=== PATIENT | female | born 1995 | race Caucasian/White ===

== ENCOUNTER 2016-10-25 05:33 | Inpatient (IN) | payer BC ==
[2016-10-13 14:12] VITALS: BMI 27.0
[~2016-10-25] VITALS: Ht 154.9 cm; Wt 64.5 kg
[2016-10-25] VITALS (11 sets, daily range): BP systolic 98–141; BP diastolic 53–81; PULSE 60–88; TEMP 36.6–36.8; O2SAT 94–99; Ht 154.9 cm; Wt 64.5 kg
[~2016-10-25 05:33] MED LIST: ATEN50TA8 PO; LEVOIUD; MULT-506 PO; SULF800T23 PO
[2016-10-25] MEDS ORDERED: LACTATED RINGER'S 1000ML 1,000 ML IV SCH (06:00)
[2016-10-25] MEDS ORDERED: DEXAMETHASONE SOD INJ 4 MG/ML VIAL ONE (06:41)
[2016-10-25] MEDS ORDERED: MIDAZOLAM HCL 1 MG/ML 2ML VIAL ONE (06:41)
[2016-10-25] MEDS ORDERED: FENTANYL CITRATE INJ 50 MCG/1 ML 2 ML VIAL ONE (06:41)
[2016-10-25] MEDS ORDERED: LIDOCAINE HCL 2% 2 ML VIAL (20MG/ML) ONE (06:41)
[2016-10-25] MEDS ORDERED: PROPOFOL IV EMULSION 10 MG/ML 20 ML VIAL IV ONE ×2 (06:41→09:22)
[2016-10-25] MEDS ORDERED: ONDANSETRON INJ 2 MG/ML 2 ML VIAL ONE ×2 (06:41→08:59)
[2016-10-25] MEDS ORDERED: SUCCINYLCHOLINE CHLORIDE 20 MG/ML 10 ML VIAL IV ONE (06:41)
[2016-10-25] MEDS ORDERED: SCOPOLAMINE 1.5 MG TDSY TD ONE (06:57)
[2016-10-25] MEDS ORDERED: ONDANSETRON INJ 2 MG/ML 2 ML VIAL IV PRN (07:00)
[2016-10-25] MEDS ORDERED: EpHEDrine SULFATE INJ 50 MG/ML AMP IV PRN (07:00)
[2016-10-25] MEDS ORDERED: ATROPINE SULFATE 0.1 MG/ML 5ML SYR IV PRN (07:00)
[2016-10-25] MEDS ORDERED: CEFAZOLIN IV 2,000 MG/60 ML D5W IV ONE (07:14)
[2016-10-25] MEDS ORDERED: NURSING VERBAL MED ORDER ONE ×5 (07:15→21:30)
--- NOTE | 2016-10-25 07:27 | History and Physical ---
History & Physical Date Oct 25, 2016. Chief Complaint thyroid nodule History of Present Illness The patient is a 21 year old female who presents today for thyroidectomy for a 2x2 cm thyroid nodule at the junction of the isthmus and the right thyroid lobe on palpation. She had an FNA that showed borderline material to make a diagnosis of a benign lesion. She did not wish to have a repeat US and FNA and elected to go through with thyroidectomy. She has a history of palpitations but was cleared by cardiology and noted that they do not think her palpitations are of cardiac origin. She reported that she has no change in her health history. Past Medical/Surgical History Medical Problems: (1) Cystitis (2) UTI (urinary tract infection) Additional History Hepatic Disease: No Endocrine Disorder: No Kidney Disease: No Hypertension: No Bleeding Tendencies: No Infectious Diseases: No Other: Palpitations Allergies Coded Allergies: No Known Allergies (Verified , 10/25/16) Home Medications Scheduled Atenolol (Tenormin), 50 MG PO BID Multivitamin (Multivitamin), 1 TAB PO QAM Scheduled PRN Sulfa/Trimethoprim (Bactrim Ds 800MG/160MG), 1 TAB PO UD PRN for UTI Miscellaneous Medications Levonorgestrel (Iud) (Mirena), 1 DOSE Physical Examination Skin: warm/dry Neck: supple, no adenopathy, trachea midline, + pertinent finding (2x2 cm thyroid mass at the junction of the isthmus and the right thyroid lobe. ) Respiratory/Chest: lungs clear, normal breath sounds, no respiratory distress Cardiovascular: regular rate, rhythm, no edema, no murmur Diagnosis thyroid nodule ASA Classification: ASA Class I Plan of Treatment Patient was consented for thyroidectomy with intraoperative nerve monitoring today 10/25/16. Informed consent was obtained after a thorough explanation fo the procedure, benefits, and risks of the procedure. There was an opportunity for questions and answers. Nursing counseling was provided. IT IS IMPORTANT TO NOTE THAT SHE WAS CONSENTED FOR TOTAL THYROIDECTOMY. HOWEVER , I MADE IT VERY CLEAR THAT I WOULD START BY REMOVING THE NODULE LOCATED AT THE JUNCTION OF THE RIGHT THYROID LOBE AND ISTHMUS. IF FROZEN SECTON ANALYSIS IS ANY WAY SURGGESTIVE OF A MALIGNANT LESION, THEN I WILL PROCEED WITH TOTAL THRYOIDECTOMY. OTHERWISE, THE PROCEDURE WILL BE TERMINATED WITH REMOVAL OF ONLY THIS NODULE. THE PATIENT INDICATED ACCEPTANCE OF THE PLAN AND SIGNED HER CONSENT FORM.
[2016-10-25] MEDS ORDERED: HYDROmorphone INJ 2 MG/ML SYR/VIAL ONE (07:44)
[2016-10-25] MEDS ORDERED: LIDOCAINE/EPINEPHRINE 1% 20 ML VIAL INJ ONE (08:18)
[2016-10-25] MEDS ORDERED: EpHEDrine SULFATE 50MG/5ML SYR ONE (09:02)
[2016-10-25] MEDS ORDERED: TISSEEL FIBRIN SEALANT 4ML TOP ONE (09:07)
[2016-10-25] MEDS ORDERED: BACITRACIN OINT 15 GM TUBE TOP ONE (09:07)
[2016-10-25] MEDS ORDERED: SURGICEL ABSORB HEMOSTAT 2IN X 14IN TOP ONE (09:07)
[2016-10-25] MEDS ORDERED: SODIUM CHLORIDE 0.9% 1000ML 1,000 ML IV SCH (09:41)
[2016-10-25] MEDS ORDERED: CALCIUM CARBONATE 500 MG CHEWABLE PO PRN (09:45)
[2016-10-25] MEDS ORDERED: NALOXONE HCL 0.4 MG/1 ML VIAL/CARP IV PRN (09:45)
[2016-10-25] MEDS ORDERED: MoRPHine SULFATE 1 MG/ML 50 ML PCA CASS IV PRN (09:45)
[2016-10-25] MEDS: FENTANYL CITRATE INJ 50 MCG/1 ML 2 ML VIAL IV PRN ×4 (09:52→10:07)
[2016-10-25] MEDS ORDERED: MoRPHine SULFATE 1 MG/ML 50 ML PCA CASS ONE (10:01)
[2016-10-25] MEDS: HYDROmorphone INJ 1 MG/ML SYR IV PRN ×2 (10:12→10:17)
--- NOTE | 2016-10-25 10:36 | Anesthesiology Progress Note ---
Anesthesia Post Op Note Date & Time Oct 25, 2016 at 10:36 Vital Signs Pain Intensity: 3 Vital Signs Past 12 Hours Date Time Temp Pulse Resp B/P Pulse Ox O2 Delivery O2 Flow Rate FiO2 10/25/16 10:16 36.4 10/25/16 10:13 124/66 10/25/16 10:10 102 15 10/25/16 10:10 108 15 98 10/25/16 10:08 121/55 10/25/16 10:05 108 15 10/25/16 10:05 107 15 99 10/25/16 10:03 124/70 10/25/16 10:00 100 13 10/25/16 10:00 100 13 99 10/25/16 09:58 124/60 10/25/16 09:55 99 10 98 10/25/16 09:55 100 10 10/25/16 09:53 122/62 10/25/16 09:50 114 15 10/25/16 09:50 115 15 99 10/25/16 09:48 119/56 10/25/16 09:45 114 22 10/25/16 09:45 115 22 99 10/25/16 09:43 120/53 10/25/16 09:40 36.4 110 16 120/53 98 Mask 10 10/25/16 05:50 36.8 88 18 141/81 99 Room Air Notes Mental Status: alert / awake / arousable, participated in evaluation Pt Amnestic to Procedure: Yes Nausea / Vomiting: adequately controlled Pain: adequately controlled Airway Patency, RR, SpO2: stable & adequate BP & HR: stable & adequate Hydration State: stable & adequate Anesthetic Complications: no major complications apparent
--- NOTE | 2016-10-25 11:14 | [facility] Post Operative Brief Note ---
Immediate Operative Summary Operative Date Oct 25, 2016. Pre-Operative Diagnosis Thyroid Mass Post-Operative Diagnosis Same as preoprerative diagnosis Procedure(s) Performed Total Thyroidectomy Surgeon Dr Roverto De Los Santos Drums Teacher Surgeon(s) Kelsie Hitchcock PA-C Estimated Blood Loss 25 Findings 3 x 3 cm right thyroid lobe mass abutting isthmus and located in the lower pole. Specimens Total thyroidectomy: Long suture Left superior aspect, Short suture Right inferior aspect Complication(s) None Disposition Recovery Room / PACU
--- NOTE | 2016-10-25 11:22 | OPERATIVE REPORT ---
DATE OF OPERATION: 10/25/2016 SURGEON: Dr. De Los Santos. WATCH AND CLOCK MAKER AND REPAIRER: Kelsie Hitchcock PA-C. ANESTHESIA: General via endotracheal tube. PROCEDURE: Total thyroidectomy with intraoperative monitoring of recurrent laryngeal nerves bilaterally. PREOPERATIVE DIAGNOSIS: Right thyroid lobe mass. POSTOPERATIVE DIAGNOSIS: Right thyroid lobe mass. SUMMARY OF FINDINGS: 1. A 3 x 3 cm right thyroid lobe mass that felt somewhat cystic in nature at certain parts and then other aspects felt solid. 2. No lymph nodes in the paratracheal area or in the anterior central neck compartment. 3. Recurrent laryngeal nerves easily identified early in the dissection and after visual inspection, stimulated at 0.5 milliamps. After all dissection and hemostasis achieved, the nerves were once again stimulated at 0.5 milliamps with a vigorous response. INDICATIONS FOR THE PROCEDURE: This is a 21-year-old woman who had a right thyroid mass and a nondiagnostic fine needle aspiration when she saw me back in May of 2016. I recommended for serial ultrasounds with fine needle aspiration if there was an increase in size. She was very adamant that she did not want to have another fine needle aspiration, she just wanted this mass out. When I explained the difference between a lobectomy and a total thyroidectomy, she strongly preferred total thyroidectomy. Full informed consent including the indications, risks, benefits, and alternatives was provided in a relaxed office setting. There was an opportunity for questions and answers. BLOOD LOSS: 25 mL. FLUIDS: 1 liter crystalloid. SPECIMENS SENT: Total thyroid gland. There was a long suture in the superior aspect of the left thyroid lobe and a short suture in the inferior aspect of the right thyroid lobe. Sponge and needle count was correct at the end of the case. COMPLICATIONS: None. DESCRIPTION OF THE PROCEDURE: Prior to the surgery, the patient had the planned incision drawn when she was sitting upright at the bedside. There was no relaxed skin tension line anywhere near the incision, given her young age. Therefore, I made a curvilinear line just about 1.5 cm superior to the sternal notch. Following an uneventful intubation and confirmation that there was good impedance for the nerve monitoring, I injected in the previously drawn incision line with 20 mL 1% lidocaine, 1:100,000 parts epinephrine. She was then prepped and draped in a standard fashion and a shoulder roll was placed. Following sterile prep and drape, #10 blade was used to make an incision down through skin, subcutaneous tissue and platysma. Superiorly and inferiorly based platysmal flaps were elevated using Bovie electrocautery. Strap muscles were divided in the midline and held laterally throughout the case using a Green retractor. The superior thyroid blood supply was ligated and clamped using mini and medium Hemoclips. Also, the ligature device was used throughout the case to help dissect and also to seal and divide vessels. Only the right superior parathyroid gland was identified during the case. A subcapsular dissection was used to avoid removing any parathyroid glands inadvertently. After controlling the blood supply superiorly, the technique then involved finding the recurrent laryngeal nerve in the tracheoesophageal groove bilaterally. Then dissection was carried from inferior to superior using the ligature device while keeping an eye on the nerve at all times and avoiding excessive retraction. The nerves were protected at all times. Anteriorly, the thyroid gland was removed from the tracheal wall using electrocautery and bipolar electrocautery and also a #15 blade. A near total thyroidectomy was performed with just a small cuff of thyroid tissue remaining, primarily on the left side. There was essentially no bleeding and therefore no Surgicel was placed in the tracheoesophageal groove. Alma drains were doubled one on another and placed in the tracheoesophageal groove. The strap muscles were closed in the midline using a running 3-0 Vicryl suture. Tisseel was used to spray deep to the platysma and then the platysma was closed with a running 4-0 chromic suture. The platysma was held down against the Tisseel. The 2 Alma drains were brought out one on top of another in the midline. The dermis was closed with inverted and buried 4-0 chromic suture. Skin was closed with chuck. The drain site had stay sutures placed using two 5-0 nylon sutures. At this point, the Bovie had already been turned off. The wound was cleaned with hydrogen peroxide, followed by alcohol. After this, it was dried. Bacitracin was placed on the wound, followed by Telfa and Tegaderm. The patient was allowed to wake up on her own and was transferred to recovery in no apparent distress. I attest to the content of the Intraoperative Record and any orders documented therein. Any exceptions are noted below. RAFAELA
[2016-10-25] MEDS ORDERED: DiphenhydrAMINE HCL 50 MG/ML VIAL IV SCH (15:15)
[2016-10-25] MEDS: CEFAZOLIN IV 2,000 MG in DEXTROSE 5% 50ML 50 ML IV SCH (15:49)
[2016-10-25] MEDS: ONDANSETRON INJ 2 MG/ML 2 ML VIAL IV PRN (18:36)
[2016-10-25] MEDS ORDERED: DC PCA ONE (20:00)
[2016-10-25] MEDS: CALCIUM CARBONATE 500 MG CHEWABLE PO SCH ×3 (21:08→22:28)
[2016-10-25] MEDS ORDERED: BACITRACIN OINT 15 GM TUBE EXT PRN (22:00)
[2016-10-25] MEDS: HYDROCODONE/ACETAMINOPHEN 7.5/325MG TAB PO PRN (22:29)
[2016-10-26] MEDS: CEFAZOLIN IV 2,000 MG in DEXTROSE 5% 50ML 50 ML IV SCH ×2 (00:10→07:53)
[2016-10-26] MEDS ORDERED: NURSING VERBAL MED ORDER ONE ×2 (00:45→01:00)
[2016-10-26] MEDS ORDERED: ACETAMINOPHEN 325 MG TAB PO STA (00:49)
[2016-10-26] MEDS: ONDANSETRON INJ 2 MG/ML 2 ML VIAL IV PRN (00:54)
[2016-10-26] MEDS ORDERED: DEXAMETHASONE INJ 10 MG in SYRINGE 0 ML IV STA (00:55)
[2016-10-26] MEDS ORDERED: LORAZEPAM INJ 1 MG in SYRINGE 0.5 ML IV PRN (01:00)
[2016-10-26 03:28] VITALS: BP 101/57; PULSE 75; TEMP 36.7; O2SAT 96
[2016-10-26] MEDS: HYDROCODONE/ACETAMINOPHEN 7.5/325MG TAB PO PRN ×2 (03:35→07:58)
[2016-10-26 07:19] VITALS: BP 103/58; PULSE 57; TEMP 36.7; O2SAT 96
--- NOTE | 2016-10-26 09:37 | Discharge Instructions ---
Discharge Instructions Admission Reason for Admission: Thyroid Mass Discharge Discharge Diagnosis / Problem: Thyroid Mass Discharge Goals Goal(s): Improve disease control, Therapeutic intervention Activity Recommendations Activity Limitations: as noted below Lifting Limitations: no more than 5 pounds Exercise/Sports Limitations: until after follow-up appointment Shower/Bathe: keep incision dry Driving or Machine Use: Do not drive while taking narcotic pain medication. . Instructions / Follow-Up Instructions / Follow-Up Follow up with Dr. Roverto De Los Santos on 10/27/16. Current Hospital Diet Patient's current hospital diet: Regular Diet Discharge Diet Recommended Diet: Regular Diet Procedures Procedures Performed: Total Thyroidectomy Pending Studies Studies pending at discharge: no Laboratory Results Last 24 Hours Test 10/26/16 06:00 Calcium Level 8.3 mg/dl Medical Emergencies . Who to Call and When: Medical Emergencies: If at any time you feel your situation is an emergency, please call 911 immediately. . Non-Emergent Contact Non-Emergency issues call your: Primary Care Provider Call Non-Emergent contact if: you have a fever, your pain is worsening, wound has increased drainage, wound has increased redness, wound has increased pain . . "Provider Documentation" section prepared by Kelsie Hitchcock. VTE Core Measure Inpt VTE Proph given/why not?: Treatment not indicated
[2016-10-26] MEDS ORDERED: ONDANSETRON HOME PACK 4MG OD TAB PO PRN (10:00)
[2016-10-26 10:11] VITALS: BP 103/58; PULSE 57; TEMP 36.7; O2SAT 96
[2016-10-26] MEDS ORDERED: ONDA4TAB65 PO (10:19)
--- NOTE | 2016-10-26 10:24 | Anesthesiology Progress Note ---
Anesthesia Post Op Note Date & Time Oct 26, 2016 at 10:24 Vital Signs Pain Intensity: 2.0 Vital Signs Past 12 Hours Date Time Temp Pulse Resp B/P Pulse Ox O2 Delivery O2 Flow Rate FiO2 10/26/16 10:11 36.7 57 16 96 Room Air 10/26/16 09:41 Room Air 10/26/16 07:19 36.7 57 16 103/58 96 Room Air 10/26/16 03:28 36.7 75 16 101/57 96 Room Air 10/26/16 00:10 Room Air 10/25/16 23:45 36.7 65 16 98/55 98 Room Air Notes Mental Status: alert / awake / arousable, participated in evaluation Pt Amnestic to Procedure: Yes Nausea / Vomiting: adequately controlled Pain: adequately controlled Airway Patency, RR, SpO2: stable & adequate BP & HR: stable & adequate Hydration State: stable & adequate Anesthetic Complications: no major complications apparent
--- NOTE | 2016-10-26 10:26 | Discharge Summary ---
Discharge Summary Admission Date: Oct 25, 2016 at 09:57 Discharge Date: Oct 26, 2016 Discharge Disposition: Home Primary Diagnosis: Thyroid Mass Procedures: Total Thyroidectomy with Intraoperative Nerve Monitoring Discharge Instructions Last Recorded Wt (Kilograms): 64.550 Return to School/Work: limitations (No lifting anything greater than 5 lbs) Diet At Discharge: Regular Allergies: Coded Allergies: No Known Allergies (Verified , 10/25/16) Home Health Services: none Special Care: Call your doctor if: * Temperature above 101 degrees * Pain not relieved by pain medicine ordered * There is increased drainage or redness from any incision * You have any unanswered questions or concerns. Avoid all tobacco products. If you need help to stop smoking, call [place]'s FREE QUITLINE at . This is a free call. Hospital Course Patient presented on 10/25/16 for total thyroidectomy with Intraoperative Nerve Monitoring for thyroid mass. She had a history of a FNA that was inconclusive and she opted to have the mass removed rather ed proceed with serial FNAs. She tolerated the procedure well, and she had no complications. Last night she developed itching from the COST ACCOUNTING ANALYST pump, but this was discontinued, and she was placed on Benadryl which improved her itching. She is doing well today and her dressing was changed last night. She does not some nausea but stated that Zofran helps her. Ther was no ida blood or discharge on the dressing. There is no hematoma noted in the neck. She will be discharged today with Zofran and will follow up with Dr. Roverto De Los Santos 10/27/16 at [facility] on 10/27/16. Total time spent on discharge = This includes examination of the patient, discharge planning, medication reconciliation, and communication with other providers.
== END 2016-10-26 10:41 | disposition home or self-care (01) | DRG 627 ==
LOC: ENRESERVDT → ENRESERVTM → C.ACU 05:33 → C.MSW 09:57
PROVIDERS: ADMIT Otolaryngology; ATTEND Otolaryngology
PROC: 0GTK0ZZ Resection of Thyroid Gland, Open Approach (ICD-10-PCS; principal; 2016-10-25 07:30)
DX: E04.1 Nontoxic single thyroid nodule (principal); R00.2 Palpitations; Z79.899 Other long term (current) drug therapy; L29.9 Pruritus, unspecified; T40.605A Adverse effect of unspecified narcotics, initial encounter; Y92.230 Patient room in hospital as the place of occurrence of the external cause

== ENCOUNTER 2016-10-30 10:57 | Emergency (ER) | payer BC ==
[~2016-10-30] VITALS: Ht 154.9 cm; Wt 68.0 kg
[~2016-10-30 10:57] MED LIST changes: +ONDA4TAB65 PO
[2016-10-30 11:00] VITALS: TEMP 36.9; Ht 154.9 cm; Wt 68.0 kg
[2016-10-30] MEDS ORDERED: SODIUM CHLORIDE 0.9% 1000ML 1,000 ML IV STA (11:22)
[2016-10-30 11:35] LABS: BASO % 0.1 %; BASO ABS # 0.01 K/uL (0-0.2); COMPLETE YES; EOS % 1.1 %; HEMATOCRIT 44.4 % (37-47); IG% 0.3 %; LYMPH % 23.5 %; LYMPH ABS # 1.77 K/uL (1.2-3.4); MEAN CELL VOLUME 89.3 fL (80-100); MEAN CORPUSCULAR HEMOGLOBIN 31.8 pg (25-34); MEAN CORPUSCULAR HGB CONC 35.6 g/dl (32-36); MEAN PLATELET VOLUME 10.6 fL (7.4-10.4); MONO % 8.2 %; NEUT % 66.8 %; PLATELET COUNT 268 K/uL (130-400); RED BLOOD COUNT 4.97 M/uL (4.2-5.4); WHITE BLOOD COUNT 7.54 K/uL (4.8-10.8)
[2016-10-30] MEDS ORDERED: CEPH500C2 PO (11:36)
[2016-10-30] MEDS ORDERED: CALC500C3 PO (11:36)
[2016-10-30] MEDS ORDERED: HYDR-5688 PO (11:38)
[2016-10-30] MEDS ORDERED: ONDA4TAB46 PO (11:38)
[2016-10-30] MEDS ORDERED: LEVO112T2 PO (11:39)
[2016-10-30 11:51] LABS: ALT/SGPT 27 U/L (12-78); AST/SGOT 19 U/L (15-37); BLOOD UREA NITROGEN 10 mg/dl (7-18); BUN/CREATININE RATIO 11.4 (10-20); CALCIUM 9.6 mg/dl (8.5-10.1); CARBON DIOXIDE 28 mmol/L (21-32); CHLORIDE 103 mmol/L (98-107); CREATININE 0.85 mg/dl (0.60-1.20); GLUCOSE 90 mg/dl (70-99); POTASSIUM 3.8 mmol/L (3.5-5.1); SODIUM 140 mmol/L (136-145)
[2016-10-30 11:53] LABS: ALKALINE PHOSPHATASE 65 U/L (45-117)
[2016-10-30 12:15] LABS: URINE APPEARANCE CLEAR (CLEAR); URINE BILIRUBIN NEG (NEG); URINE COLOR YELLOW; URINE EPITHELIAL CELL AUTO >30 /lpf (0-5); URINE NITRITE NEG (NEG); URINE PH 7.5 (4.5-7.5); URINE SPECIFIC GRAVITY 1.003 (1.000-1.030); UROBILINOGEN NEG (NEG); ZZUR CULT IF INDIC CLEAN CATCH YES
[2016-10-30] MEDS ORDERED: OPTIRAY 320 IV PRN (12:15)
[2016-10-30 12:21] LABS: MANUAL MICROSCOPIC REQUIRED? NO; REVIEW REQ? NO
--- NOTE | 2016-10-30 12:29 | DIAGNOSTIC IMAGING REPORT ---
CHEST AND ABDOMEN 2 VIEWS HISTORY: Generalized abdominal pain. COMPARISON: Chest 09/15/2016. FINDINGS: No pneumothorax. The heart is normal in size. There are surgical clips at the neck base. Suspect trace bilateral pleural effusions. Linear densities at the left lung base favor subsegmental atelectasis. No focal lung consolidations to suggest pneumonia. No pneumoperitoneum. No pneumatosis. No renal or ureteral calculi. There is an intrauterine device within the mid pelvis. Moderate well-formed stool seen throughout the colon. There is a fusion defect at S1. IMPRESSION: 1. Trace bilateral pleural effusions. 2. Left basilar linear densities likely represent subsegmental atelectasis. 3. Moderate well-formed stool seen within the colon. No evidence for bowel obstruction. Electronically signed by: Sylvester Hernandez M.D. 10/30/2016 12:28 PM Dictated Date/Time: 10/30/2016 12:25 PM
--- NOTE | 2016-10-30 13:10 | DIAGNOSTIC IMAGING REPORT ---
CHEST CTA for PULMONARY ARTERIES CT DOSE: 415.14 mGy.cm HISTORY: Atypical chest pain. TECHNIQUE: Multiaxial CT images of the chest were performed following the intravenous administration of contrast to evaluate the pulmonary arteries. Maximal intensity projection images were also obtained. COMPARISON STUDY: Chest and abdominal series 10/30/2016. FINDINGS: Soft tissue gas and fluid at the thyroid bed consistent with postoperative change status post thyroidectomy. Small amount of soft tissue density within the anterior mediastinum favors residual thymic tissue given the patient's age. No mediastinal or hilar lymphadenopathy. There are small bilateral pleural effusions with associated bibasilar consolidation suggesting compressive atelectasis from the pleural fluid. The visualized liver, spleen, and adrenal glands are unremarkable. No pneumothorax. The central airways are patent. The upper lung zones are clear. Normal caliber thoracic aorta with no evidence for dissection. Nondiagnostic evaluation of the majority of the left lower lobe segmental and subsegmental pulmonary arteries due to motion artifact. Otherwise, no filling defects within the remaining pulmonary arteries to suggest pulmonary embolus. IMPRESSION: 1. No evidence for pulmonary embolus with limitations as described above. 2. Small bilateral pleural effusions. 3. Bibasilar lower lobe densities favor compressive atelectasis from the pleural effusions. 4. Soft tissue gas and fluid at the thyroid bed consistent with postoperative change status post thyroidectomy. Electronically signed by: Sylvester Hernandez M.D. 10/30/2016 1:09 PM Dictated Date/Time: 10/30/2016 1:00 PM
[2016-10-30] MEDS ORDERED: SOD PHOSPHATE/SOD BIPHOSPHATE ENEMA 132 ML BTL PR STA (13:43)
[2016-10-30 14:05] VITALS: BP 149/91; PULSE 72; O2SAT 98
--- NOTE | 2016-10-30 16:05 | EMERGENCY ROOM VISIT NOTE ---
History Report prepared by Hammad: Cruz Cisneros Under the Supervision of: Dr. Fede Mayfield D.O. First contact with patient: 11:00 Chief Complaint: SYNCOPE (NEAR SYNCOPE) Stated Complaint: OTHER History of Present Illness The patient is a 21 year old female who presents to the Emergency Room with complaints of a sudden near syncopal episode occurring prior to arrival. The patient states she was trying to have a bowel movement, and she almost passed out, however she was able to lower herself down. The patient states that she had a thyroidectomy five days ago due to having a 3cm x 3cm mass. The patient additionally sates that she has not had a bowel movement since before the surgery. She states that she is having some abdominal discomfort, and it feels like a pressure. She additionally states that she is feeling light headed and dizzy. The patient states that she is having heart palpations, however this is somewhat normal for her and they usually last for 1-5 minutes. Additionally she states that she faints often. She denies any history of hypertension, hyperlipidemia, diabetes, and history of clots. The patient additionally states that she has an IUD. The patient states that there is no drainage from the incision, however it is tender. Pt denies headache, change in vision, fevers, chest pain, shortness of breath, coughing up blood, vomiting, diarrhea, pain with urination, and melena. Source of History: patient Onset: prior to arrival Position: other (global) Quality: other (near syncopal episode) Timing: other (sudden) Note: Associated symptoms: Constipation, light headedness, dizziness. Review of Systems See HPI for pertinent positives & negatives. A total of 10 systems reviewed and were otherwise negative. Past Medical & Surgical Medical Problems: (1) Cystitis (2) Nausea (3) Thyroid nodule (4) UTI (urinary tract infection) Family History Gallbladder disease Hypertension Social History Smoking Status: Never Smoker Alcohol Use: none Housing Status: lives with family Occupation Status: employed Current/Historical Medications Scheduled Atenolol (Tenormin), 50 MG PO BID Calcium Carbonate (Tums), 9 TABS PO DAILY Cephalexin Monohydrate (Keflex), 1 CAP PO QID Levothyroxine Sodium (Synthroid), 112 MCG PO DAILY Scheduled PRN Hydrocodone/Acetaminophen 5MG/325MG ([place] 5MG/325MG), 1 TABLET PO Q4 PRN for Pain Ondansetron Hcl (Zofran), 4 MG PO DAILY PRN for Nausea Miscellaneous Medications Levonorgestrel (Iud) (Mirena), 1 DOSE Allergies Coded Allergies: No Known Allergies (Verified , 10/25/16) Physical Exam Vital Signs Date Time Temp Pulse Resp B/P Pulse Ox O2 Delivery O2 Flow Rate FiO2 10/30/16 14:05 72 17 149/91 98 10/30/16 12:55 56 18 117/71 97 Room Air 10/30/16 11:26 87 10/30/16 11:00 36.9 75 17 146/91 78 Room Air Physical Exam GENERAL: Siting up in bed, alert, well appearing, well nourished, no distress, non-toxic EYE EXAM: normal conjunctiva, PERRL and EOM's intact OROPHARYNX: no exudate, no erythema, lips, buccal mucosa, and tongue normal and mucous membranes are moist NECK: supple, no nuchal rigidity, no adenopathy, non-tender LUNGS: Clear to auscultation. Normal chest wall mechanics HEART: no murmurs, S1 normal and S2 normal ABDOMEN: abdomen soft, non-tender, normo-active bowel sounds, no masses, no rebound or guarding. BACK: Back is symmetrical on inspection and there is no deformity, no midline tenderness, no CVA tenderness. SKIN: no rashes and no bruising UPPER EXTREMITIES: upper extremities are grossly normal. LOWER EXTREMITIES: No pitting edema. NEURO EXAM: Normal sensorium, cranial nerves II-XII grossly intact, normal speech, no gross weakness of arms, no gross weakness of legs. Gross sensation intact. Medical Decision & Procedures ER Provider Diagnostic Interpretation: Xray results per the radiologist and my interpretation. Other results have been interpreted by the radiologist and reviewed by me. CHEST AND ABDOMEN 2 VIEWS HISTORY: Generalized abdominal pain. COMPARISON: Chest 09/15/2016. FINDINGS: No pneumothorax. The heart is normal in size. There are surgical clips at the neck base. Suspect trace bilateral pleural effusions. Linear densities at the left lung base favor subsegmental atelectasis. No focal lung consolidations to suggest pneumonia. No pneumoperitoneum. No pneumatosis. No renal or ureteral calculi. There is an intrauterine device within the mid pelvis. Moderate well-formed stool seen throughout the colon. There is a fusion defect at S1. IMPRESSION: 1. Trace bilateral pleural effusions. 2. Left basilar linear densities likely represent subsegmental atelectasis. 3. Moderate well-formed stool seen within the colon. No evidence for bowel obstruction. Electronically signed by: Sylvester Hernandez M.D. 10/30/2016 12:28 PM Dictated Date/Time: 10/30/2016 12:25 PM CHEST CTA for PULMONARY ARTERIES CT DOSE: 415.14 mGy.cm HISTORY: Atypical chest pain. TECHNIQUE: Multiaxial CT images of the chest were performed following the intravenous administration of contrast to evaluate the pulmonary arteries. Maximal intensity projection images were also obtained. COMPARISON STUDY: Chest and abdominal series 10/30/2016. FINDINGS: Soft tissue gas and fluid at the thyroid bed consistent with postoperative change status post thyroidectomy. Small amount of soft tissue density within the anterior mediastinum favors residual thymic tissue given the patient's age. No mediastinal or hilar lymphadenopathy. There are small bilateral pleural effusions with associated bibasilar consolidation suggesting compressive atelectasis from the pleural fluid. The visualized liver, spleen, and adrenal glands are unremarkable. No pneumothorax. The central airways are patent. The upper lung zones are clear. Normal caliber thoracic aorta with no evidence for dissection. Nondiagnostic evaluation of the majority of the left lower lobe segmental and subsegmental pulmonary arteries due to motion artifact. Otherwise, no filling defects within the remaining pulmonary arteries to suggest pulmonary embolus. IMPRESSION: 1. No evidence for pulmonary embolus with limitations as described above. 2. Small bilateral pleural effusions. 3. Bibasilar lower lobe densities favor compressive atelectasis from the pleural effusions. 4. Soft tissue gas and fluid at the thyroid bed consistent with postoperative change status post thyroidectomy. Electronically signed by: Sylvester Hernandez M.D. 10/30/2016 1:09 PM Dictated Date/Time: 10/30/2016 1:00 PM Laboratory Results 10/30/16 11:10 Red Blood Count 4.97, Mean Corpuscular Volume 89.3, Mean Corpuscular Hemoglobin 31.8, Mean Corpuscular Hemoglobin Concent 35.6, Mean Platelet Volume 10.6, Neutrophils (%) (Auto) 66.8, Lymphocytes (%) (Auto) 23.5, Monocytes (%) (Auto) 8.2, Eosinophils (%) (Auto) 1.1, Basophils (%) (Auto) 0.1, Neutrophils # (Auto) 5.04, Lymphocytes # (Auto) 1.77, Monocytes # (Auto) 0.62, Eosinophils # (Auto) 0.08, Basophils # (Auto) 0.01 10/30/16 11:10 Test 10/30/16 11:10 10/30/16 11:50 White Blood Count 7.54 K/uL (4.8-10.8) Red Blood Count 4.97 M/uL (4.2-5.4) Hemoglobin 15.8 g/dL (12.0-16.0) Hematocrit 44.4 % (37-47) Mean Corpuscular Volume 89.3 fL (80-100) Mean Corpuscular Hemoglobin 31.8 pg (25-34) Mean Corpuscular Hemoglobin Concent 35.6 g/dl (32-36) Platelet Count 268 K/uL (130-400) Mean Platelet Volume 10.6 fL (7.4-10.4) Neutrophils (%) (Auto) 66.8 % Lymphocytes (%) (Auto) 23.5 % Monocytes (%) (Auto) 8.2 % Eosinophils (%) (Auto) 1.1 % Basophils (%) (Auto) 0.1 % Neutrophils # (Auto) 5.04 K/uL (1.4-6.5) Lymphocytes # (Auto) 1.77 K/uL (1.2-3.4) Monocytes # (Auto) 0.62 K/uL (0.11-0.59) Eosinophils # (Auto) 0.08 K/uL (0-0.5) Basophils # (Auto) 0.01 K/uL (0-0.2) RDW Standard Deviation 39.3 fL (36.4-46.3) RDW Coefficient of Variation 12.1 % (11.5-14.5) Immature Granulocyte % (Auto) 0.3 % Immature Granulocyte # (Auto) 0.02 K/uL (0.00-0.02) D-Dimer 1040 ug/L FEU (0-500) Anion Gap 9.0 mmol/L (3-11) Est Creatinine Clear Calc Drug Dose 91.5 ml/min Estimated GFR () 112.7 Estimated GFR (Non- 97.3 BUN/Creatinine Ratio 11.4 (10-20) Calcium Level 9.6 mg/dl (8.5-10.1) Total Bilirubin 0.4 mg/dl (0.2-1) Direct Bilirubin < 0.1 mg/dl (0-0.2) Aspartate Amino Transf (AST/SGOT) 19 U/L (15-37) Alanine Aminotransferase (ALT/SGPT) 27 U/L (12-78) Alkaline Phosphatase 65 U/L (45-117) Total Protein 8.5 gm/dl (6.4-8.2) Albumin 4.5 gm/dl (3.4-5.0) Lipase 315 U/L (73-393) Urine Color YELLOW Urine Appearance CLEAR (CLEAR) Urine pH 7.5 (4.5-7.5) Urine Specific [place] 1.003 (1.000-1.030) Urine Protein NEG (NEG) Urine Glucose (UA) NEG (NEG) Urine Ketones NEG (NEG) Urine Occult Blood 3+ (NEG) Urine Nitrite NEG (NEG) Urine Bilirubin NEG (NEG) Urine Urobilinogen NEG (NEG) Urine Leukocyte Esterase LARGE (NEG) Urine WBC (Auto) >30 /hpf (0-5) Urine RBC (Auto) 0-4 /hpf (0-4) Urine Hyaline Casts (Auto) 1-5 /lpf (0-5) Urine Epithelial Cells (Auto) >30 /lpf (0-5) Urine Bacteria (Auto) 1+ (NEG) Urine Test NEG (NEG) Laboratory results per my review. Medications Administered Medications (Trade) Dose Ordered Sig/Munir Route Start Time Stop Time Status Last Admin Dose Admin Sodium Chloride (Nss 1000ml) 1,000 ml @ 999 mls/hr Q1H1M STAT IV 10/30/16 11:22 10/30/16 12:22 DC 10/30/16 11:22 999 MLS/HR Sodium Biphosphate/ Sodium Phosphate (Fleet Enema) 132 ml NOW STAT AR 10/30/16 13:43 10/30/16 13:44 DC 10/30/16 13:43 132 ML ECG Indication: syncope Rate (beats per minute): 76 Rhythm: normal sinus Findings: no ectopy, other (Normal [place]) ED Course ED COURSE: Vital signs were reviewed and showed normal vitals The patients medical record was reviewed The above diagnostic studies were performed and reviewed. ED treatments and interventions as stated above. 1100: The patient was evaluated in room C10. A complete history and physical examination was performed. 1122: Sodium Chloride 1000 ml @ 999 mls/hr IV 1228: I reevaluates the patient to tell her that she needs to get a CT scan 1332: Upon reevaluation, the patient is feeling better.I discussed my findings with the patient and she understands and agrees with the treatment plan. I had a long discussion, and she does not want an enema and oral miralax/ mag citrate. She prefers to do it at home. Based on the patients age, coexisting illnesses, exam and lab findings the decision to treat as an outpatient was made. The patient remained stable while under my care. The patient appeared well at the time of discharge. 1343: Fleet Enema 132ml AR Medical Decision Differential diagnosis includes etiologies such as vasovagal event, infection, hypoglycemia, electrolyte abnormalities, cardiac sources, intracerebral event, toxicologic, neurologic, as well as others were entertained. Patient is a 19-year-old female who presents the ER for a near-syncopal episode. She notes that she went to the bathroom and try to have a bowel movement and felt very lightheaded. She currently has no chest pain or shortness of breath. She had no other symptoms at the time. She does not that she has a pressor in her lower abdomen that she has had a bowel movement. Of note she had a thyroidectomy several days ago. She has been taking narcotics and has not had a bowel movement for 6 days. She still passing gas. Labs show no significant leukocytosis or anemia. BMP along with LFTs, bilirubin and lipase were unremarkable. UA had leukocytes, white cells, bacteria and greater than 30 epithelial cells. She is no urinary complaints and notes that she normally has dysuria, urgency and frequency which is UTI. Will not treat at this time as I feel it is a contaminant. Urine was negative. D- dimer was elevated consequently CT PE was performed which was negative. EKG was unremarkable. Obstruction series shows a large amount of stool but no obstruction. Based on her history I do believe that this discussed patient. Offered enema but she preferred to take this at home. Recommended 250 g of MiraLAX mixed with 64 ounces of Gatorade and drink 8 ounces every 15-30 minutes until she has a bowel movement. I believe that this near-syncope was vasovagal in nature as she was trying to have a bowel movement and is clearly constipated. She has no cardiac risk factors. Negative PE study. Discussed with Pt concerning signs and symptoms to watch out for. Pt was instructed to follow up with their PCP and discussed with the patient their option to return to the ED at anytime for persistent or worsening symptoms. The appropriate anticipatory guidance and out-patient management, including indications for return to the emergency department, were explained at length to the patient and understood. Impression Primary Impression: Vasovagal near syncope Additional Impression: Constipation Scribe Attestation The scribe's documentation has been prepared under my direction and personally reviewed by me in its entirety. I confirm that the note above accurately reflects all work, treatment, procedures, and medical decision making performed by me. Departure Information Dispostion Home / Self-Care Referrals Janet Arredondo M.D. (PCP) Forms HOME CARE DOCUMENTATION FORM, IMPORTANT VISIT INFORMATION Patient Instructions Constipation, ED Near Syncope Vasovagal, My [facility] Additional Instructions Please follow up with your primary care doctor with in the next 24 hours. Any worsening of your symptoms, please return to the ED immediately. This includes any persistent nausea vomiting, worsening pain, passing out, chest pain, shortness breath, or any other concerning signs or symptoms from your standpoint. When you get home please use Fleet enema. Then mix entire bottle of the 250 gms of MiraLAX with 64 ounces of Gatorade. Please drink 8 ounces every 15-30 minutes until he had a bowel movement. This can be repeated once. Problem Qualifiers Additional Impression: Constipation Constipation type: drug induced constipation Qualified Codes: K59.03 - Drug induced constipation
== END 2016-10-30 14:15 | disposition home or self-care (01) ==
LOC: EEVIPCON 10:58 → C.EDC 10:58
DX: R55 Syncope and collapse (principal); K59.00 Constipation, unspecified; R00.2 Palpitations; E04.1 Nontoxic single thyroid nodule; Z98.890 Other specified postprocedural states; Z79.899 Other long term (current) drug therapy; Z86.79 Personal history of other diseases of the circulatory system; Z87.19 Personal history of other diseases of the digestive system; Z97.5 Presence of (intrauterine) contraceptive device

== ENCOUNTER 2016-11-01 11:40 | Emergency (ER) | payer BC ==
[~2016-11-01] VITALS: Ht 154.9 cm; Wt 65.0 kg
[~2016-11-01 11:40] MED LIST changes: +CALC500C3 PO; +CEPH500C2 PO; +HYDR-5688 PO; +LEVO112T2 PO; -MULT-506 PO; +ONDA4TAB46 PO; -ONDA4TAB65 PO; -SULF800T23 PO
[2016-11-01 11:55] VITALS: TEMP 36.9; Ht 154.9 cm; Wt 65.0 kg
[2016-11-01 12:32] LABS: BASO % 0.2 %; BASO ABS # 0.01 K/uL (0-0.2); COMPLETE YES; EOS % 1.1 %; IG% 0.2 %; LYMPH % 25.6 %; LYMPH ABS # 1.58 K/uL (1.2-3.4); MEAN CELL VOLUME 90.9 fL (80-100); MEAN CORPUSCULAR HEMOGLOBIN 31.4 pg (25-34); MEAN CORPUSCULAR HGB CONC 34.5 g/dl (32-36); MEAN PLATELET VOLUME 10.4 fL (7.4-10.4); MONO % 7.9 %; PLATELET COUNT 246 K/uL (130-400); RED BLOOD COUNT 4.62 M/uL (4.2-5.4); WHITE BLOOD COUNT 6.18 K/uL (4.8-10.8)
[2016-11-01 12:57] LABS: URINE APPEARANCE CLEAR (CLEAR); URINE BILIRUBIN NEG (NEG); URINE COLOR YELLOW; URINE EPITHELIAL CELL AUTO >30 /lpf (0-5); URINE NITRITE NEG (NEG); URINE PH 7.5 (4.5-7.5); URINE SPECIFIC GRAVITY 1.016 (1.000-1.030); UROBILINOGEN NEG (NEG); ZZUR CULT IF INDIC CLEAN CATCH NO
[2016-11-01 12:59] LABS: MANUAL MICROSCOPIC REQUIRED? NO; REVIEW REQ? NO
[2016-11-01 13:09] LABS: ALKALINE PHOSPHATASE 66 U/L (45-117); ALT/SGPT 80 U/L (12-78); AST/SGOT 60 U/L (15-37); BLOOD UREA NITROGEN 16 mg/dl (7-18); BUN/CREATININE RATIO 23.4 (10-20); CALCIUM 7.3 mg/dl (8.5-10.1); CARBON DIOXIDE 26 mmol/L (21-32); CHLORIDE 105 mmol/L (98-107); CREATININE 0.69 mg/dl (0.60-1.20); GLUCOSE 71 mg/dl (70-99); POTASSIUM 3.7 mmol/L (3.5-5.1); SODIUM 140 mmol/L (136-145)
[2016-11-01] MEDS ORDERED: CALCIUM GLUCONATE 10% 10 ML VIAL IV STA (14:10)
[2016-11-01 15:31] VITALS: BP 112/71; PULSE 81; O2SAT 94
--- NOTE | 2016-11-01 17:31 | EMERGENCY ROOM VISIT NOTE ---
History Report prepared by Hammad: Elijah Mae Under the Supervision of: Dr. Noe Flores M.D. First contact with patient: 12:07 Chief Complaint: ABNORMAL LABS Stated Complaint: HYPOCALCEMIA-NUMBNESS/TINGLING History of Present Illness The patient is a 21 year old female who presents to the Emergency Room with complaints of waxing and waning tingling that started around a week ago after having surgery. She had her thyroid and parathyroid removed by Dr. Filiberto Arguello ENT. The patient said the pathology was fine. She notes that she has been dealing with calcium problems lately, and she has been having tingling in her face, hands, and feet. The patient says that ever since her surgery, she has been having cramping in those areas, and then it would get better, but the areas would then go numb. The patient says the tingling and numbness is worse when she has cramping pain. She had her labs ran yesterday and her calcium was at 8.1. She had been taking 3 calcium tablets 3 times per day, but she stopped 2 days ago because the calcium was making her constipated. She called her doctor today, and the doctor said to take 3 calcium tablets, and see if the tingling would go away. If not, then the patient was advised to come here. The patient had 6 calcium tablets in total today. She says she has had no problems with the incision, and she had her stitches taken out yesterday. She is currently having numbness and tingling. Pt denies LOC, headache, fevers, chills , diaphoresis, visual changes, neck pain, chest pain, breathing difficulties, nausea, vomiting, abdominal pain, back pain, melena, hematochezia, urinary symptoms, weakness, lymphadenopathy, rash, or other complaints. Source of History: patient Onset: Around a week ago Position: hand (bilateral), foot (bilateral), other (tingling - face as well ) Timing: waxes/wanes Associated Symptoms: + numbness Note: No other associated symptoms noted. Review of Systems See HPI for pertinent positives and negatives. A total of ten systems were reviewed and were otherwise negative. Past Medical & Surgical Medical Problems: (1) Cystitis (2) Nausea (3) Thyroid nodule (4) UTI (urinary tract infection) Family History Gallbladder disease Hypertension Social History Smoking Status: Never Smoker Alcohol Use: none Housing Status: lives with family Occupation Status: employed Current/Historical Medications Scheduled Atenolol (Tenormin), 50 MG PO BID Calcium Carbonate (Tums), 9 TABS PO DAILY Cephalexin Monohydrate (Keflex), 1 CAP PO QID Levothyroxine Sodium (Synthroid), 112 MCG PO DAILY Scheduled PRN Hydrocodone/Acetaminophen 5MG/325MG ([place] 5MG/325MG), 1 TABLET PO Q4 PRN for Pain Ondansetron Hcl (Zofran), 4 MG PO DAILY PRN for Nausea Miscellaneous Medications Levonorgestrel (Iud) (Mirena), 1 DOSE Allergies Coded Allergies: No Known Allergies (Verified , 11/01/16) Physical Exam Vital Signs Date Time Temp Pulse Resp B/P Pulse Ox O2 Delivery O2 Flow Rate FiO2 11/01/16 15:31 81 16 112/71 94 Room Air 11/01/16 14:30 88 18 114/80 99 Room Air 11/01/16 13:43 82 11/01/16 11:55 36.9 105 16 158/104 99 Room Air Physical Exam GENERAL: Awake, alert, well appearing, no distress HENT: Normocephalic, atraumatic. TM's normal. Oropharynx unremarkable. EYES: PERRL. EOMI. Normal conjunctiva. Sclera non-icteric. NECK: Supple. No nuchal rigidity. FROM. No JVD or bruit. Low anterior incision without signs of infection or dehiscence. RESPIRATORY: CTA CARDIAC: RRR. No murmur. ABDOMEN: Soft, non distended. No tenderness to palpation. No rebound or guarding. No masses. RECTAL: Deferred. MUSCULOSKELETAL: Unremarkable. No edema. No discoloration. Gross motor strength symmetric. NEURO: Cranial nerves 2-12 grossly intact. Normal sensorium. No sensory or motor deficits noted. Speech normal. No pronator drift. SKIN: No rash or jaundice noted. LYMPH: No adenopathy. Medical Decision & Procedures Laboratory Results 11/01/16 12:17 Red Blood Count 4.62, Mean Corpuscular Volume 90.9, Mean Corpuscular Hemoglobin 31.4, Mean Corpuscular Hemoglobin Concent 34.5, Mean Platelet Volume 10.4, Neutrophils (%) (Auto) 65.0, Lymphocytes (%) (Auto) 25.6, Monocytes (%) (Auto) 7.9, Eosinophils (%) (Auto) 1.1, Basophils (%) (Auto) 0.2, Neutrophils # (Auto) 4.02, Lymphocytes # (Auto) 1.58, Monocytes # (Auto) 0.49, Eosinophils # (Auto) 0.07, Basophils # (Auto) 0.01 11/01/16 12:17 Test 11/01/16 12:17 11/01/16 12:25 11/01/16 14:30 White Blood Count 6.18 K/uL (4.8-10.8) Red Blood Count 4.62 M/uL (4.2-5.4) Hemoglobin 14.5 g/dL (12.0-16.0) Hematocrit 42.0 % (37-47) Mean Corpuscular Volume 90.9 fL (80-100) Mean Corpuscular Hemoglobin 31.4 pg (25-34) Mean Corpuscular Hemoglobin Concent 34.5 g/dl (32-36) Platelet Count 246 K/uL (130-400) Mean Platelet Volume 10.4 fL (7.4-10.4) Neutrophils (%) (Auto) 65.0 % Lymphocytes (%) (Auto) 25.6 % Monocytes (%) (Auto) 7.9 % Eosinophils (%) (Auto) 1.1 % Basophils (%) (Auto) 0.2 % Neutrophils # (Auto) 4.02 K/uL (1.4-6.5) Lymphocytes # (Auto) 1.58 K/uL (1.2-3.4) Monocytes # (Auto) 0.49 K/uL (0.11-0.59) Eosinophils # (Auto) 0.07 K/uL (0-0.5) Basophils # (Auto) 0.01 K/uL (0-0.2) RDW Standard Deviation 41.5 fL (36.4-46.3) RDW Coefficient of Variation 12.5 % (11.5-14.5) Immature Granulocyte % (Auto) 0.2 % Immature Granulocyte # (Auto) 0.01 K/uL (0.00-0.02) Anion Gap 9.0 mmol/L (3-11) Est Creatinine Clear Calc Drug Dose 110.3 ml/min Estimated GFR () 143.2 Estimated GFR (Non- 123.6 BUN/Creatinine Ratio 23.4 (10-20) Calcium Level 7.3 mg/dl (8.5-10.1) Magnesium Level 2.0 mg/dl (1.8-2.4) Total Bilirubin 0.3 mg/dl (0.2-1) Direct Bilirubin < 0.1 mg/dl (0-0.2) Aspartate Amino Transf (AST/SGOT) 60 U/L (15-37) Alanine Aminotransferase (ALT/SGPT) 80 U/L (12-78) Alkaline Phosphatase 66 U/L (45-117) Total Protein 8.0 gm/dl (6.4-8.2) Albumin 4.1 gm/dl (3.4-5.0) Lipase 350 U/L (73-393) Urine Color YELLOW Urine Appearance CLEAR (CLEAR) Urine pH 7.5 (4.5-7.5) Urine Specific [place] 1.016 (1.000-1.030) Urine Protein NEG (NEG) Urine Glucose (UA) NEG (NEG) Urine Ketones NEG (NEG) Urine Occult Blood 2+ (NEG) Urine Nitrite NEG (NEG) Urine Bilirubin NEG (NEG) Urine Urobilinogen NEG (NEG) Urine Leukocyte Esterase MODERATE (NEG) Urine WBC (Auto) 1-5 /hpf (0-5) Urine RBC (Auto) 0-4 /hpf (0-4) Urine Hyaline Casts (Auto) 1-5 /lpf (0-5) Urine Epithelial Cells (Auto) >30 /lpf (0-5) Urine Bacteria (Auto) NEG (NEG) Urine Test NEG (NEG) Ionized Calcium 0.93 mmol/l (1.12-1.32) Laboratory results reviewed by me Medications Administered Medications (Trade) Dose Ordered Sig/Munir Route Start Time Stop Time Status Last Admin Dose Admin Calcium Gluconate (Calcium Gluconate 10%) 1,000 mg NOW STAT IV 11/01/16 14:10 11/01/16 14:12 DC 11/01/16 14:28 1,000 MG ECG Indication: other (numbness/tingling) Rate (beats per minute): 70 Rhythm: normal sinus, other (with sinus arrhythmia) Findings: T-wave inversion (Anterior), no ectopy ED Course 1227: The patient was evaluated in room A4B. A complete history and physical exam was performed. 1410: Ordered Calcium Gluconate 10% 1000 mg IV. 1412: I reevaluated the patient and she is doing well. She will get calcium. 1428: I discussed the patient with Dr. De Los Santos [facility] - he recommended initiation of oral calcium. The patient has a follow-up appointment coming up, and she should come back here if she has any issues. 1525: I reevaluated the patient and she feels great. Her tingling has resolved. The patient verbally expressed understanding and agreement of the treatment plan. The patient will be discharged. Medical Decision Triage Nursing notes reviewed. The patient's presentation and history were concerning for numbness and tingling status post thyroid/parathyroid surgery. Etiologies such as metabolic, infection, hypo/hyperglycemia, electrolyte abnormalities, cardiac sources, intracerebral event, toxicologic, neurologic, as well as others were entertained. Patient was evaluated. Clinically she was doing well. Wound had no sign of dehiscence or infection. The patient had some subjective tingling but no sensory or motor deficits were noted. Blood work was obtained. CBC was unremarkable. Chemistry panel and ionized calcium measurements reveal hypocalcemia. The patient had a normal magnesium and her LFTs were slightly elevated. The patient has no abdominal symptoms. This may be related to medication or distress of the surgery. She notes taking Tylenol with Codeine but has not taken more than the recommended amount. She is taken about 3 g per day. In fact she has weaned down over the last day or 2 and has only been taking 4 or 5 Tylenol 3 per day. She will refrain from additional Tylenol and have her LFTs rechecked. I did consult with Dr. De Los Santos, her ENT physician. He was pleased with the treatment and recommended oral calcium replacement in follow-up for labs as already ordered. I discussed this with the patient and she was in agreement. By the evaluation outlined above other emergent etiologies such as those listed in the differential, as well as others, were deemed relatively unlikely. The patient and family were informed about the findings as listed above. All questions were answered and they were pleased with the treatment. Return instructions were outlined and the patient was discharged in stable condition. The patient was referred to ENT and PCP for follow-up for a recheck of the current condition. The chart was completed utilizing [employer] Speech voice recognition software. Grammatical errors, random word insertions, pronoun errors, and incomplete sentences are an occasional consequence of this system due to software limitations, ambient noise, and hardware issues. Any formal questions or concerns about the content, text, or information contained within the body of this dictation should be directly addressed to the physician for clarification. Consults Time Called: 1420 Consulting Physician: Dr. Filiberto RAGLAND Returned Call: [phone] I discussed the patient with Dr. Filiberto Arguello ENT - he recommended initiation of oral calcium. The patient has a follow-up appointment coming up, and she should come back here if she has any issues. Impression Primary Impression: Hypocalcemia Additional Impression: Numbness Scribe Attestation The scribe's documentation has been prepared under my direction and personally reviewed by me in its entirety. I confirm that the note above accurately reflects all work, treatment, procedures, and medical decision making performed by me. Departure Information Dispostion Home / Self-Care Referrals Janet Arredondo M.D. (PCP) Forms HOME CARE DOCUMENTATION FORM, IMPORTANT VISIT INFORMATION, WORK / SCHOOL INSTRUCTIONS Patient Instructions My [facility] Disability Care Givers Additional Instructions Continue current calcium supplementation. Stool softener as needed as discussed. Follow-up with your ENT and primary provider as discussed. On the Draw have them check your liver functions as well. Return to the ER for headache, passing out, difficulty breathing, fevers, drainage, wound problems, numbness, tingling, worsening of your condition, or as needed. Problem Qualifiers
== END 2016-11-01 16:28 | disposition home or self-care (01) ==
LOC: C.EDB 11:42 → C.EDA 16:28
DX: E83.51 Hypocalcemia (principal); R20.0 Anesthesia of skin; E04.1 Nontoxic single thyroid nodule; Z87.440 Personal history of urinary (tract) infections; Z86.19 Personal history of other infectious and parasitic diseases; Z79.899 Other long term (current) drug therapy; Z83.79 Family history of other diseases of the digestive system; Z82.49 Family history of ischemic heart disease and other diseases of the circulatory system

== ENCOUNTER 2018-05-28 07:16 | Emergency (ER) | payer BC ==
[~2018-05-28] VITALS: Ht 154.9 cm; Wt 66.2 kg
[~2018-05-28 07:16] MED LIST changes: +LEVO1IUD2; -LEVOIUD
[2018-05-28] MEDS ORDERED: SODIUM CHLORIDE 0.9% 1000ML 1,000 ML IV STA (07:32)
[2018-05-28] MEDS ORDERED: CALC0.2510 PO (07:34)
--- NOTE | 2018-05-28 07:44 | DIAGNOSTIC IMAGING REPORT ---
CHEST ONE VIEW PORTABLE CLINICAL HISTORY: Altered mental status, weakness. COMPARISON STUDY: 10/30/2016 FINDINGS: The cardiac and mediastinal contours are normal. There is no evidence of focal pulmonary consolidation. There is no evidence of failure. No pleural effusions are visualized.[ IMPRESSION: No active disease in the chest. Electronically signed by: Christian Harmon M.D. 05/28/2018 7:43 AM Dictated Date/Time: 05/28/2018 7:42 AM
[2018-05-28 08:00] VITALS: O2SAT 98
[2018-05-28 08:05] VITALS: Ht 154.9 cm; Wt 66.2 kg
[2018-05-28 08:07] LABS: BASO % 0.3 %; BASO ABS # 0.02 K/uL (0-0.2); EOS % 1.5 %; EOS ABS # 0.09 K/uL (0-0.5); HEMATOCRIT 40.2 % (37-47); HEMOGLOBIN 13.6 g/dL (12.0-16.0); IG# 0.01 K/uL (0.00-0.02); LYMPH ABS # 1.96 K/uL (1.2-3.4); MEAN CELL VOLUME 90.3 fL (80-100); MEAN CORPUSCULAR HEMOGLOBIN 30.6 pg (25-34); MEAN CORPUSCULAR HGB CONC 33.8 g/dl (32-36); MEAN PLATELET VOLUME 10.4 fL (7.4-10.4); MONO % 8.7 %; MONO ABS # 0.53 K/uL (0.11-0.59); NEUT % 57.3 %; NEUT ABS # 3.51 K/uL (1.4-6.5); PLATELET COUNT 262 K/uL (130-400); RED CELL DISTRIBUTION WIDTH CV 12.1 % (11.5-14.5); RED CELL DISTRIBUTION WIDTH SD 40.1 fL (36.4-46.3); WHITE BLOOD COUNT 6.12 K/uL (4.8-10.8)
[2018-05-28 08:20] LABS: PTT PATIENT 22.2 SECONDS (21.0-31.0)
[2018-05-28 08:33] LABS: ALBUMIN 4.1 gm/dl (3.4-5.0); ALKALINE PHOSPHATASE 52 U/L (45-117); ALT/SGPT 19 U/L (12-78); AST/SGOT 16 U/L (15-37); BLOOD UREA NITROGEN 16 mg/dl (7-18); CALCIUM 8.4 mg/dl (8.5-10.1); CARBON DIOXIDE 27 mmol/L (21-32); CREATININE 0.79 mg/dl (0.60-1.20); GLUCOSE 81 mg/dl (70-99); PHOSPHORUS 3.3 mg/dl (2.5-4.9); POTASSIUM 3.5 mmol/L (3.5-5.1); SODIUM 140 mmol/L (136-145); TOTAL PROTEIN 7.9 gm/dl (6.4-8.2)
[2018-05-28 11:35] VITALS: BP 101/57; PULSE 57; O2SAT 98
--- NOTE | 2018-05-28 17:57 | EMERGENCY ROOM VISIT NOTE ---
History First contact with patient: 07:18 Chief Complaint: HYPOTENSION Stated Complaint: U History of Present Illness The patient is a 22 year old female who presents to the Emergency Room with complaints of a near syncopal episode this morning. 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 The patient reports that she was sitting at a computer when she started to develop palpitations and chest discomfort, along with mild shortness of breath and nausea. The patient reports that she almost passed out, stating that she developed tunnel vision. She did not have any syncope. The patient reports that she has had similar episodes in the past. She has followed up with Dr. Falcon, endocrinology physician with cardiac monitoring and an echocardiogram that was normal approximately 3 years ago. She does have a history of thyroidectomy. She currently takes atenolol 25 mg daily, and has been on atenolol now for approximately 3 years. The patient reports that she has had similar type of episodes in the past, both at rest and with exertion. Dr. Falcon thought that her symptoms may be secondary to anxiety, although the patient does not feel that her anxiety is an issue with her current symptoms. The patient denies any prior history of other chronic heart issues. Her grandmother had a history of DVT, otherwise denies any other known family coagulopathies. Patient denies tobacco use. She does use a Mirena for contraception. Currently denies any chest pain. It is noted that her blood pressure was in the 60s systolic when the nurses checked her on the floor. Her BSG was normal. Review of Systems HEENT: Denies dizziness, hearing loss, tinnitus. Denies difficulty swallowing or oral lesions. PULMONARY: Denies cough, sputum production or hemoptysis. CARDIOVASCULAR: Denies chest pain, overt palpitations, dyspnea on exertion, orthopnea or peripheral edema. GASTROINTESTINAL: Denies diarrhea, constipation, nausea, vomiting, or abdominal pain. GENITOURINARY: Denies dysuria, frequency, urgency or nocturia. NEUROLOGIC: Denies history of epilepsy, CVA, TIA or chronic headaches. MUSCULOSKELETAL: Denies history of joint tenderness/swelling. SKIN: Denies rashes or lesions. PSYCHIATRIC: Denies history of depression or mental illness. ENDOCRINE: Denies history of diabetes. Patient is status post thyroidectomy. Past Medical/Surgical History Medical Problems: (1) Cystitis (2) Nausea (3) Thyroid nodule (4) UTI (urinary tract infection) Family History Gallbladder disease Hypertension Social History Smoking Status: Unknown if Ever Smoked Alcohol Use: none Drug Use: none Marital Status: Housing Status: lives with family Occupation Status: employed Current/Historical Medications Scheduled Atenolol (Tenormin), 25 MG PO BID Calcitriol (Rocaltrol Cap), 0.75 MCG PO DAILY Levothyroxine Sodium (Synthroid), 112 MCG PO DAILY Miscellaneous Medications Levonorgestrel (Iud) (Mirena), 1 DOSE Physical Exam Vital Signs Date Time Temp Pulse Resp B/P (MAP) Pulse Ox O2 Delivery O2 Flow Rate FiO2 05/28/18 11:35 57 16 101/57 98 05/28/18 10:31 94/50 05/28/18 10:01 105/58 05/28/18 09:31 100/57 05/28/18 09:01 105/72 05/28/18 08:46 61 15 99 05/28/18 08:31 119/78 05/28/18 08:16 55 16 100 05/28/18 08:02 107/74 05/28/18 08:02 65 20 107/74 96 05/28/18 08:00 98 Room Air 05/28/18 07:56 116/80 05/28/18 07:46 66 05/28/18 07:46 61 16 05/28/18 07:42 108/67 05/28/18 07:23 75 20 126/76 98 Room Air 05/28/18 07:22 75 126/76 99 81 120/83 83 127/90 Physical Exam CONSTITUTIONAL: Healthy and well nourished. Alert and oriented X 3 with positive affect. HEENT: Normocephalic, atraumatic. Pupils equal, round and reactive. Ears and nares are clear. No scleral icterus or conjunctival injection/pallor. OROPHARYNX: No tonsillar hypertrophy or exudates. Mucous membranes are dry. NECK: Full active range of motion without discomfort. No JVD or carotid bruits. RESPIRATORY: Clear to auscultation bilaterally with no wheezing, crackles, rhonchi or stridor. CARDIOVASCULAR: Regular rate and rhythm with no murmurs, rubs or gallops. GASTROINTESTINAL: Bowel sounds present in all quadrants. Soft and nontender to palpation. MUSCULOSKELETAL: Full range of motion of all joints without discomfort. INTEGUMENTARY: No rash or other significant dermatologic conditions noted. HEMATOLOGIC: No ecchymosis or petechiae noted. NEUROLOGIC: Cranial nerves II-XII grossly intact. No focal neurologic deficits noted. Negative pronator drift. Medical Decision & Procedures ER Provider Diagnostic Interpretation: My interpretation of an ECG shows a sinus bradycardia [address] elevation or other conduction abnormalities. My interpretation of a portable chest x-ray does not show any consolidations or pneumothorax. Radiologist report is as follows: CHEST ONE VIEW PORTABLE CLINICAL HISTORY: Altered mental status, weakness. COMPARISON STUDY: 10/30/2016 FINDINGS: The cardiac and mediastinal contours are normal. There is no evidence of focal pulmonary consolidation. There is no evidence of failure. No pleural effusions are visualized.[ IMPRESSION: No active disease in the chest. Laboratory Results 05/28/18 07:55 Red Blood Count 4.45, Mean Corpuscular Volume 90.3, Mean Corpuscular Hemoglobin 30.6, Mean Corpuscular Hemoglobin Concent 33.8, Mean Platelet Volume 10.4, Neutrophils (%) (Auto) 57.3, Lymphocytes (%) (Auto) 32.0, Monocytes (%) (Auto) 8.7, Eosinophils (%) (Auto) 1.5, Basophils (%) (Auto) 0.3, Neutrophils # (Auto) 3.51, Lymphocytes # (Auto) 1.96, Monocytes # (Auto) 0.53, Eosinophils # (Auto) 0.09, Basophils # (Auto) 0.02 05/28/18 07:55 Test 05/28/18 07:55 05/28/18 09:00 05/28/18 09:10 White Blood Count 6.12 K/uL (4.8-10.8) Red Blood Count 4.45 M/uL (4.2-5.4) Hemoglobin 13.6 g/dL (12.0-16.0) Hematocrit 40.2 % (37-47) Mean Corpuscular Volume 90.3 fL (80-100) Mean Corpuscular Hemoglobin 30.6 pg (25-34) Mean Corpuscular Hemoglobin Concent 33.8 g/dl (32-36) Platelet Count 262 K/uL (130-400) Mean Platelet Volume 10.4 fL (7.4-10.4) Neutrophils (%) (Auto) 57.3 % Lymphocytes (%) (Auto) 32.0 % Monocytes (%) (Auto) 8.7 % Eosinophils (%) (Auto) 1.5 % Basophils (%) (Auto) 0.3 % Neutrophils # (Auto) 3.51 K/uL (1.4-6.5) Lymphocytes # (Auto) 1.96 K/uL (1.2-3.4) Monocytes # (Auto) 0.53 K/uL (0.11-0.59) Eosinophils # (Auto) 0.09 K/uL (0-0.5) Basophils # (Auto) 0.02 K/uL (0-0.2) RDW Standard Deviation 40.1 fL (36.4-46.3) RDW Coefficient of Variation 12.1 % (11.5-14.5) Immature Granulocyte % (Auto) 0.2 % Immature Granulocyte # (Auto) 0.01 K/uL (0.00-0.02) Prothrombin Time 10.7 SECONDS (9.0-12.0) Prothromb Time International Ratio 1.0 (0.9-1.1) Activated Partial Thromboplast Time 22.2 SECONDS (21.0-31.0) Partial Thromboplastin Ratio 0.9 D-Dimer 210 ug/L FEU (0-500) Anion Gap 9.0 mmol/L (3-11) Est Creatinine Clear Calc Drug Dose 96.4 ml/min Estimated GFR () 122.3 Estimated GFR (Non- 105.5 BUN/Creatinine Ratio 20.6 (10-20) Calcium Level 8.4 mg/dl (8.5-10.1) Phosphorus Level 3.3 mg/dl (2.5-4.9) Magnesium Level 2.0 mg/dl (1.8-2.4) Total Bilirubin 0.6 mg/dl (0.2-1) Direct Bilirubin 0.2 mg/dl (0-0.2) Aspartate Amino Transf (AST/SGOT) 16 U/L (15-37) Alanine Aminotransferase (ALT/SGPT) 19 U/L (12-78) Alkaline Phosphatase 52 U/L (45-117) Total Creatine Kinase 101 U/L (26-192) Troponin I < 0.015 ng/ml (0-0.045) Total Protein 7.9 gm/dl (6.4-8.2) Albumin 4.1 gm/dl (3.4-5.0) Thyroid Stimulating Hormone (TSH) 0.729 uIu/ml (0.300-4.500) Urine Opiates Screen NEG (NEG) Urine Methadone, Qualitative NEG (NEG) Urine Barbiturates NEG (NEG) Urine Phencyclidine (PCP) Level NEG (NEG) Ur Amphetamine/Methamphetamine NEG (NEG) MDMA (Ecstasy) Screen NEG (NEG) Urine Benzodiazepines Screen NEG (NEG) Urine Cocaine Metabolite NEG (NEG) Urine Marijuana (THC) NEG (NEG) Urine Color DK YELLOW Urine Appearance TURBID (CLEAR) Urine pH 7.5 (4.5-7.5) Urine Specific [place] 1.026 (1.000-1.030) Urine Protein NEG (NEG) Urine Glucose (UA) NEG (NEG) Urine Ketones TRACE (NEG) Urine Occult Blood 2+ (NEG) Urine Nitrite NEG (NEG) Urine Bilirubin NEG (NEG) Urine Urobilinogen NEG (NEG) Urine Leukocyte Esterase MODERATE (NEG) Urine WBC (Auto) 10-30 /hpf (0-5) Urine RBC (Auto) 5-10 /hpf (0-4) Urine Hyaline Casts (Auto) 10-30 /lpf (0-5) Urine Epithelial Cells (Auto) >30 /lpf (0-5) Urine Bacteria (Auto) NEG (NEG) Urine Renal Epithelial Cells /lpf (0-5) Urine Crystals See comments (NONE PRSENT) Urine Mucus PRESENT (NONE PRSENT) The above labs were reviewed and were grossly normal. Urine drug screen is negative. Urinalysis shows a contaminated sample without obvious infection. Urine culture is pending. Urine is negative. Medications Administered Medications (Trade) Dose Ordered Sig/Munir Route Start Time Stop Time Status Last Admin Dose Admin Sodium Chloride 1,000 ml @ 999 mls/hr Q1H1M STAT IV 05/28/18 07:32 05/28/18 08:32 DC 05/28/18 08:04 999 MLS/HR ED Course Patient history and physical exam were performed. Nurse's notes were reviewed. Vital signs were reviewed and were normal in the emergency department. ECG and portable chest x-ray were normal. IV access was established, and labs were drawn. The patient was hydrated with a liter normal saline. Review of labs did not show any acute findings. D-dimer and troponin were normal, as were electrolytes, CBC, LFTs and lipase. Urinalysis shows a contaminated sample. Urine is negative. Upon reevaluation, the patient did report feeling better with IV hydration. At this point, the patient was encouraged to follow-up with her PCP and/or endocrinology physician for further reevaluation. She was instructed to return for any progressively worsening symptoms. The patient was happy with plan of care, and voiced understanding of all discharge instructions. Medical Decision She presents to the department for evaluation of a near syncopal 7. The patient has had these episodes in the past. Her workup today is not suggestive of acute cardiopulmonary etiology. She is euthyroid. She is not anemic. She is not , and urinalysis is not suggestive of infection. Although orthostatics were normal, the patient did clinically appeared dehydrated, and reported feeling better after IV hydration. Case discussed with attending. Medication Reconcilliation Current Medication List: was personally reviewed by me Blood Pressure Screening Patient's blood pressure: Normal blood pressure Impression Primary Impression: Near syncope Departure Information Referrals No Doctor, Assigned (PCP) Patient Instructions My [facility]
== END 2018-05-28 11:40 | disposition home or self-care (01) ==
LOC: EDSEX 07:16 → EDBD 07:16 → C.EDA 07:18
DX: R55 Syncope and collapse (principal); E89.0 Postprocedural hypothyroidism; Z79.899 Other long term (current) drug therapy; F41.9 Anxiety disorder, unspecified; Z97.5 Presence of (intrauterine) contraceptive device; Z87.440 Personal history of urinary (tract) infections; Z83.79 Family history of other diseases of the digestive system; Z82.49 Family history of ischemic heart disease and other diseases of the circulatory system

== ENCOUNTER 2020-06-30 11:46 | Observation (INO) ==
[2020-06-30] MEDS ORDERED: OXYCODONE/ACETAMINOPHEN 5mg/325mg TAB PO PRN (12:23)
--- NOTE | 2020-06-30 12:29 | Obstetrical Progress Note ---
Date of Service June 30, 2020 Subjective 25yo G1 @ 35 weeks with suprapubic pain since last Pm No urgency, dysuria, frequency or change in BM. Aferile No guarding or rebound Bedside sono shows fetus is cephalic. was breech last week Plan IVH UA Pain control Results & Data ([facility]) Vital Signs (Past 12 Hours) Vital Signs Temp Pulse Resp BP 06/30/20 11:59 37.2 C 85 20 124/82 06/30/20 11:54 37.2 C 85 20 124/82
[2020-06-30] MEDS: LACTATED RINGER'S 1,000 ML IV PRN ×2 (12:33→16:40)
[2020-06-30 12:54] LABS: Appearance Urine Clear (Clear); Bacteria Urine Automated 1+ (Negative); Bilirubin Urine Negative (Negative); Blood Urine Negative (Negative); Color Urine Yellow; Epithelial Cell Urine Auto >30 /lpf (0-5); Glucose Urine UA Negative (Negative); Ketones Urine Negative (Negative); Leukocyte Esterase Urine 1+ (Negative); Nitrite Urine Negative (Negative); Protein Urine Negative (Negative); RBC Urine Automated 0-4 /hpf (0-4); Urobilinogen Urine Negative (Negative)
[2020-06-30] MEDS ORDERED: MoRPHine SULFATE 10 MG/ML CARP/VIAL IM STA (14:04)
[2020-06-30] MEDS ORDERED: MoRPHine SULFATE 10 MG/ML CARP/VIAL IV STA (14:15)
[2020-06-30 14:33] LABS: Basophils # (auto) 0.01 K/uL (0-0.2); Basophils % (auto) 0.1 %; Eosinophils # (auto) 0.04 K/uL (0-0.5); Eosinophils % (auto) 0.4 %; Hematocrit (blood only) 31.8 % (37-47); Hemoglobin 10.6 g/dL (12.0-16.0); Immature Granulocytes # (auto) 0.06 K/uL (0.00-0.02); Immature Granulocytes % (auto) 0.7 %; Lymphocytes # (auto) 1.41 K/uL (1.2-3.4); Lymphocytes % (auto) 15.7 %; Mean Corpuscular Hemoglobin 29.8 pg (25-34); Mean Corpuscular Hgb Conc 33.3 g/dL (32-36); Mean Corpuscular Volume 89.3 fL (80-100); Mean Platelet Volume 10.4 fL (7.4-10.4); Monocytes # (auto) 0.56 K/uL (0.11-0.59); Monocytes % (auto) 6.2 %; Neutrophils # (auto) 6.91 K/uL (1.4-6.5); Neutrophils % (auto) 76.9 %; Platelet Count 233 K/uL (130-400); RDW Coefficient of Variation 13.6 % (11.5-14.5); RDW Standard Deviation 44.5 fL (36.4-46.3); Red Blood Count 3.56 M/uL (4.2-5.4); White Blood Count 8.99 K/uL (4.8-10.8)
[2020-06-30 14:57] LABS: Alanine Aminotransferase 23 U/L (12-78); Albumin Level 2.2 gm/dl (3.4-5.0); Aspartate Aminotransferase 18 U/L (15-37); BUN Creatinine Ratio 18.1 (10-20); Blood Urea Nitrogen 10 mg/dl (7-18); Carbon Dioxide 20 mmol/L (21-32); Chloride 110 mmol/L (98-107); Creatinine Clr Calc Pharmacy 144.3 ml/min; Est GFR (African American) > 150.0; Est GFR (Non-African American) 130.2; Glucose 113 mg/dl (70-99); Potassium 3.4 mmol/L (3.5-5.1); Sodium 139 mmol/L (136-145)
[2020-06-30 14:59] LABS: Albumin Globulin Ratio 0.6 (0.9-2); Alkaline Phosphatase 85 U/L (45-117); Bilirubin,Total 0.3 mg/dl (0.2-1); Globulin 3.8 gm/dl (2.5-4.0)
--- NOTE | 2020-06-30 17:42 | Ultrasound Report ---
ULTRASOUND KIDNEYS AND BLADDER CLINICAL HISTORY: Left lower quadrant abdominal pain. . COMPARISON STUDY: Abdominal CT dated 07/29/2014. TECHNIQUE: Real-time, grayscale, and color flow sonography of the kidneys and bladder is performed. I mages are reviewed in the transverse and longitudinal planes. FINDINGS: Kidneys: The kidneys are normal in size and echotexture. The right kidney measures 11.2 x 7.3 x 7.9 c m and the left kidney measures 10.7 x 7.3 x 6.9 cm. There is mild bilateral hydronephrosis. No shado wing renal calculi are identified. There is no sonographic evidence of contour deforming renal mass l esion. No perinephric fluid is identified. Bladder: The bladder is not well assessed due to mass effect from the gravid uterus. The bladder is o nly partially distended. Intraluminal debris is noted. Only the left ureteral jet was seen. IMPRESSION: 1. There is mild bilateral hydronephrosis, likely related to mass effect from the gravid uterus. Clin ical correlation will be required. 2. The bladder is decompressed and not well evaluated. Intraluminal debris is noted. Correlation with urinalysis will be required. 3. Only the left ureteral jet was identified. ACT 112: Negative or not required by law. Electronically signed by: Mark George M.D. 06/30/2020 5:41 PM
--- NOTE | 2020-06-30 17:45 | Ultrasound Report ---
ULTRASOUND LIMITED CLINICAL HISTORY: Left lower quadrant abdominal/pelvic pain. 35 weeks . COMPARISON STUDY: No priors. FINDINGS: Real-time, grayscale, and color Doppler transabdominal sonography of the fetus and gravid u terus is performed. There is a single live intrauterine gestation with an estimated heart rate of 160 bpm. Positioning is cephalic. The placenta is fundal in location and heterogeneous in echotexture. T he femoral length measures 6.56 cm, corresponding to an estimated age of 33 weeks 6 days. The amnioti c fluid index measures 15.1 cm, with the largest pocket measuring 4.4 cm. The ovaries were not visual ized. The cervix was also not well seen. IMPRESSION: 1. There is a single live intrauterine gestation with an estimated age of 33 weeks 6 days by femoral length measurement. 2. Note that this does not constitute a dedicated anatomic scan. 3. The amniotic fluid index measures 15.1 cm. Electronically signed by: Mark George M.D. 06/30/2020 5:44 PM
[2020-06-30 17:48] LABS: Fibrinogen 431 mg/dl (184-400); INR 0.9 (0.9-1.1); Partial Thromboplastin Ratio 0.9; Partial Thromboplastin Time 25.8 Seconds (21.0-31.0); Prothrombin Time 9.9 Seconds (9.0-12.0)
[2020-06-30] MEDS ORDERED: PERCOCET 5/325MG HOMEPACK PO ONE (19:52)
--- NOTE | 2020-06-30 19:52 | Obstetrical Progress Note ---
Date of Service June 30, 2020 Assessment & Plan Admission and Anticipated Discharge Date Admission Date: June 30, 2020 Subjective Pt feels a little better Pt rates pain now at 5 FHr; CAT1 Minimal ctx pelvic and renal sono - Unremarkable pt is disch with bedrest and instructions Results & Data ([facility]) Vital Signs (Past 12 Hours) Vital Signs Temp Pulse Resp BP 06/30/20 19:05 75 101/51 L 06/30/20 19:04 36.7 C 20 06/30/20 14:29 95 H 121/82 06/30/20 11:59 37.2 C 85 20 124/82 06/30/20 11:54 37.2 C 85 20 124/82
== END 2020-06-30 20:30 | disposition home or self-care (01) ==
LOC: OPB 11:46 → 4S1 11:46

== ENCOUNTER 2020-07-12 13:27 | Inpatient (IN) ==
[2020-07-12] MEDS ORDERED: OXYTOCIN 30 UNITS/500 ML BAG IV PRN ×2 (13:59→14:04)
[2020-07-12 14:18] LABS: Hemoglobin 11.3 g/dL (12.0-16.0); Mean Corpuscular Hemoglobin 29.5 pg (25-34); Mean Corpuscular Volume 88.8 fL (80-100); Mean Platelet Volume 10.7 fL (7.4-10.4); Platelet Count 230 K/uL (130-400); RDW Coefficient of Variation 13.7 % (11.5-14.5); RDW Standard Deviation 44.6 fL (36.4-46.3); Red Blood Count 3.83 M/uL (4.2-5.4); White Blood Count 11.23 K/uL (4.8-10.8)
[2020-07-12 14:24] LABS: Mean Corpuscular Hgb Conc 33.2 g/dL (32-36)
[2020-07-12] MEDS: LACTATED RINGER'S 1,000 ML IV PRN ×2 (14:30→16:55)
[2020-07-12] MEDS ORDERED: fentaNYL 2MCG/ML ROPIVACAINE 1.25MG/ML 100 ML BAG EPI ONE (15:51)
[2020-07-12] MEDS ORDERED: BUPIVACAINE 0.25% 30 ML VIAL ONE (15:51)
[2020-07-12] MEDS ORDERED: ePHEDrine sulfate 50 MG/ML AMP ONE (15:51)
[2020-07-12] MEDS ORDERED: fentaNYL citrate 100 MCG/2 ML VIAL ONE (15:51)
[2020-07-12] MEDS ORDERED: NALOXONE HCL 0.4 MG/1 ML VIAL/CARP IV PRN (16:18)
[2020-07-12] MEDS ORDERED: NALOXONE HCL 1 MG in SODIUM CHLORIDE 0.9% 1000ML 1,000 ML IV PRN (16:18)
[2020-07-12] MEDS ORDERED: diphenhydrAMINE 50 MG/ML VIAL IV PRN (16:18)
[2020-07-12] MEDS ORDERED: ONDANSETRON INJ 2 MG/ML 2 ML VIAL IV PRN (16:18)
[2020-07-12] MEDS ORDERED: fentaNYL 2MCG/ML ROPIVACAINE 1.25MG/ML 100 ML BAG EPI PRN (16:18)
[2020-07-12] MEDS ORDERED: ePHEDrine sulfate 50 MG/ML AMP IV PRN (16:18)
[2020-07-12] MEDS ORDERED: SODIUM CHLORIDE 0.9% INJ 10 ML VIAL ONE (16:18)
--- NOTE | 2020-07-12 16:21 | Anesthesiology Consultation ---
Date of Service July 12, 2020 Assessment & Plan (1) Encounter for pre-operative examination: Chart Review Chart Review: Patient NOT seen in Pre Admission Testing and Acceptable Risk for Labor Epidural Consults Requested none History Height/Weight Height: 5 ft 1 in Weight: 74.843 kg Allergies Allergy/AdvReac Type Severity Reaction Status Date / Time No Known Allergies Allergy Verified 07/12/20 14:59 Medications Home Medications Medication Instructions Recorded Confirmed Last Taken levothyroxine 125 mcg PO DAILY 05/13/20 07/12/20 07/12/20 08:30 metoprolol succinate 50 mg PO DAILY 05/13/20 07/12/20 07/12/20 08:30 calcitriol 0.25 mcg PO BID 07/12/20 07/12/20 07/12/20 08:30 prenat.vits,marlene,[id number] 1 tab PO DAILY 07/12/20 07/12/20 07/12/20 08:30 [ Vitamin] Active Medications Generic Name Dose Route Start Last Admin Trade Name Freq PRN Reason Stop Dose Admin Lactated Ringer's 1,000 mls @ 125 mls/hr 07/12/20 13:59 07/12/20 16:00 Lr IV 07/14/20 13:58 999 mls/hr .Q8H PRN Infusion L&D Protocol Protocol Oxytocin 30 units in 500 mls @ 2 mls/hr 07/12/20 14:04 07/12/20 15:21 Pitocin IV 07/14/20 14:03 0.12 units/hr .Q24H PRN 2 mls/hr Labor Induction/Augmentation Administration Protocol 0.12 UNITS/HR Past Medical History Medical History (Updated 07/12/20 @ 16:41 by Ramu Jimenez MD) Syncope Vasovagal near syncope Exercise / Class Metabolic Activity II 4-5 Yardwork/Stairs/Walk up hill Past Family History Family History Father Hypertension Mother Ovarian cyst Past Surgical History Surgical History History of thyroidectomy Past Anesthesia History No Hx of Anesthesia Complications and No Family Hx of Anesthesia Complications History of PONV No Hx of PONV and No Hx of Motion Sickness Social History Smoking Status: Never smoker Do You Dip or Chew Tobacco: No Hx Alcohol Use: No Hx Substance Use: No substance use type: does not use Physical Exam Vital Signs Last Vital Signs Temp 37.2 C 07/12/20 13:38 Pulse 93 H 07/12/20 13:38 Resp 20 07/12/20 13:38 BP 126/78 07/12/20 13:38 Testing Laboratory Results 07/12/20 14:10
[2020-07-13] MEDS ORDERED: OXYTOCIN 30 UNITS/500 ML BAG IV PRN (00:43)
[2020-07-13] MEDS ORDERED: ACETAMINOPHEN W/CODEINE #3 1 TAB PO PRN (00:43)
[2020-07-13] MEDS ORDERED: bisacodyL 10 MG SUPP PR PRN (00:43)
[2020-07-13] MEDS ORDERED: BENZOCAINE 20% AER SPR 82.5 GM CAN EXT PRN (00:43)
[2020-07-13] MEDS ORDERED: SUPERCREAM 0.870% 15 GM JAR EXT PRN (00:43)
[2020-07-13] MEDS ORDERED: DIPHTHERIA/TETANUS/PERTUSSIS 0.5 ML SYR/VIAL IM ONE (00:43)
[2020-07-13] MEDS ORDERED: oxyCODONE/ACETAMINOPHEN 5mg/325mg TAB PO PRN (00:43)
[2020-07-13] MEDS ORDERED: HYDROCORTISONE ACETATE 25 MG SUPP PR PRN (00:43)
[2020-07-13] MEDS: IBUPROFEN 600 MG TAB PO PRN ×5 (01:46→19:58)
[2020-07-13] MEDS: LEVOTHYROXINE SODIUM 125 MCG TABLET PO SCH (06:35)
[2020-07-13] MEDS: PRENATAL VITAMIN 1 TAB PO SCH (08:23)
[2020-07-13] MEDS: DOCUSATE SODIUM 100 MG CAP PO SCH ×2 (08:23→21:25)
[2020-07-13] MEDS: METOPROLOL SUCC 50MG EXT REL TAB PO SCH (08:23)
[2020-07-13] MEDS: CALCITRIOL 0.25 MCG CAPSULE PO SCH ×2 (08:26→21:25)
--- NOTE | 2020-07-13 09:08 | Anesthesia Procedure Note ---
Date of Service July 13, 2020 Anesthesia Post Epidural Note Vital Signs Vital Signs: Temp Pulse Resp BP Pulse Ox 98.8 F 91 H 17 105/58 L 98 07/13/20 03:30 07/13/20 03:30 07/13/20 03:30 07/13/20 03:30 07/13/20 03:30 Pain Intensity Bilateral Lower Abdomen: Pain Intensity: 1 Episiotomy/Laceration: Pain Intensity: 5 Notes Mental Status: alert / awake / arousable and participated in evaluation Nausea / Vomiting: adequately controlled Pain: adequately controlled Airway Patency, RR, SpO2: stable & adequate BP & HR: stable & adequate Hydration State: stable & adequate Neuraxial Anesthesia: was administered and sensory block is resolving Anesthetic Complications: no major complications apparent and Pt Satisfied with anesthetic care Epidural: Removed without complications and With tip intact
--- NOTE | 2020-07-13 09:48 | Operative Report (OR) ---
DATE OF OPERATION: 07/13/2020 DELIVERY NOTE 1, para 1. Blood type is A negative, group B strep negative, diagnosed with gestational diabetes, was admitted with ida rupture of membranes at 37 weeks 3 days. Rupture of membranes was confirmed by Nitrazine. She was started on IV Pitocin. On admission, her cervix was about 4 cm. Head was well applied. It was about 90% effaced and soft. Eventually, she went on to get epidural. Eventually we continued to go up on the Pitocin until she had a good regular contraction rate and she delivered a spontaneous vaginal delivery over an intact perineum, a live female infant. was suctioned through the mouth and the nose. Cord was allowed to clamp for 1 minute, then was clamped and cut by the father. With IV Pitocin running, we had difficulty delivering the placenta. I had to do a partial manual extraction. I was able to grab the edge of the placenta through the cervical os and then gradually remove it. Uterus contracted nicely. Hemostasis was good. Inspection of the perineum revealed a first degree laceration. This was repaired anatomically with Vicryl. The vaginal mucosa was approximated out and to beyond the hymenal ring with a running 2-0 Vicryl. Then a deep suture of 2-0 Vicryl was used to approximate the rectovaginal septum. A separate suture was used to approximate the bulbocavernosus muscles. Separate suture was used to approximate the perineal body, then a running subcuticular suture was used to approximate the perineal skin edges. Following this, hemostasis was excellent. Sponges were removed from the vagina. Vaginal exam including rectovaginal examination revealed no hematoma formation or sponges through the vagina. Estimated blood loss was 200 mL Apgars were deferred to the nurses. I attest to the content of the Intraoperative Record and any orders documented therein. Any exception s are noted below.
[2020-07-13] MEDS: ACETAMINOPHEN 325 MG TAB PO PRN (19:59)
[2020-07-14] MEDS: IBUPROFEN 600 MG TAB PO PRN ×4 (00:18→17:44)
[2020-07-14] MEDS: LEVOTHYROXINE SODIUM 125 MCG TABLET PO SCH (05:09)
[2020-07-14 06:25] LABS: Hematocrit (blood only) 32.1 % (37-47); Hemoglobin 10.4 g/dL (12.0-16.0); Mean Corpuscular Hemoglobin 29.2 pg (25-34); Mean Corpuscular Hgb Conc 32.4 g/dL (32-36); Mean Corpuscular Volume 90.2 fL (80-100); Mean Platelet Volume 10.5 fL (7.4-10.4); Platelet Count 199 K/uL (130-400); RDW Coefficient of Variation 13.9 % (11.5-14.5); RDW Standard Deviation 46.2 fL (36.4-46.3); Red Blood Count 3.56 M/uL (4.2-5.4); White Blood Count 10.71 K/uL (4.8-10.8)
[2020-07-14] MEDS: METOPROLOL SUCC 50MG EXT REL TAB PO SCH (09:11)
[2020-07-14] MEDS: CALCITRIOL 0.25 MCG CAPSULE PO SCH ×2 (09:11→21:09)
[2020-07-14] MEDS: DOCUSATE SODIUM 100 MG CAP PO SCH ×2 (09:11→21:09)
[2020-07-14] MEDS: PRENATAL VITAMIN 1 TAB PO SCH (09:11)
--- NOTE | 2020-07-14 09:49 | Obstetrical Progress Note ---
Date of Service July 14, 2020 Assessment & Plan Admission and Anticipated Discharge Date Admission Date: July 12, 2020 Subjective PPD#1 doing well out of bed voiding OK tolerating diet minimal bleeding now some minor perineal discomfort noted Physical Exam Constitutional: WD/WN, vitals as above comfortable no edema neg Alina's abdomen soft and non-tender fundus firm tent d/c in AM [facility] Vital Signs (Past 12 Hours) Vital Signs Temp Pulse Resp BP Pulse Ox 07/14/20 00:30 36.7 C 90 18 119/72 98 Laboratory Results 07/12/20 07/12/20 07/14/20 14:10 Unknown 06:04 WBC 11.23 H 10.71 RBC 3.83 L 3.56 L Hgb 11.3 L 10.4 L Hct 34.0 L 32.1 L MCV 88.8 90.2 MCH 29.5 29.2 MCHC 33.2 32.4 RDW Std Deviation 44.6 46.2 RDW Coeff of Francisca 13.7 13.9 Plt Count 230 199 MPV 10.7 H 10.5 H SARS-CoV-2, RNA, NAAT NEGATIVE
[2020-07-14] MEDS: ACETAMINOPHEN 325 MG TAB PO PRN ×2 (11:50→19:33)
[2020-07-14] MEDS ORDERED: bisacodyL 5 MG TABEC PO SCH (20:00)
[2020-07-15] MEDS: IBUPROFEN 600 MG TAB PO PRN ×2 (02:13→09:26)
[2020-07-15] MEDS: LEVOTHYROXINE SODIUM 125 MCG TABLET PO SCH (05:38)
[2020-07-15 06:55] LABS: Hematocrit (blood only) 33.1 % (37-47); Hemoglobin 10.9 g/dL (12.0-16.0)
[2020-07-15] MEDS: PRENATAL VITAMIN 1 TAB PO SCH (09:26)
[2020-07-15] MEDS: DOCUSATE SODIUM 100 MG CAP PO SCH (09:26)
[2020-07-15] MEDS: CALCITRIOL 0.25 MCG CAPSULE PO SCH (09:27)
[2020-07-15] MEDS: METOPROLOL SUCC 50MG EXT REL TAB PO SCH (09:27)
--- NOTE | 2020-07-15 10:26 | Obstetrical Progress Note ---
Date of Service July 15, 2020 Assessment & Plan Admission and Anticipated Discharge Date Admission Date: July 12, 2020 Results & Data ([facility]) Vital Signs (Past 12 Hours) Vital Signs Temp Pulse Resp BP 07/14/20 23:45 36.7 C 64 20 120/80
--- NOTE | 2020-07-15 10:28 | Obstetrical Progress Note ---
Date of Service July 15, 2020 Assessment & Plan Admission and Anticipated Discharge Date Admission Date: July 12, 2020 Physical Exam Physical Exam: abdomen soft and non tender no calf tenderness ambulating well vaginal bleeding scant hgb Results & Data ([facility]) Vital Signs (Past 12 Hours) Vital Signs Temp Pulse Resp BP 07/14/20 23:45 36.7 C 64 20 120/80
== END 2020-07-15 17:25 | disposition home or self-care (01) | DRG 807 ==
LOC: OPB 13:27 → 4S1 13:28 → 4S2 07-13 03:45

== ENCOUNTER 2023-07-21 17:00 | Inpatient (IN) ==
[2023-07-21] MEDS ORDERED: OXYTOCIN 30 UNITS/500 ML BAG IV PRN ×3 (17:38→22:13)
[2023-07-21] MEDS ORDERED: LIDOCAINE 1% LOCAL 20 ML VIAL INFIL PRN (17:38)
[2023-07-21] MEDS: LACTATED RINGER'S 1,000 ML IV PRN ×2 (17:45→18:47)
[2023-07-21] MEDS ORDERED: ePHEDrine sulfate 50 MG/ML AMP ONE (17:49)
[2023-07-21] MEDS ORDERED: fentaNYL citrate PF 100 MCG/2 ML VIAL ONE (17:49)
[2023-07-21] MEDS ORDERED: fentaNYL 2MCG/ML ROPIVACAINE 1.25MG/ML 100 ML BAG EPI ONE (17:50)
[2023-07-21] MEDS ORDERED: SODIUM CHLORIDE 0.9% PF INJ 10 ML VIAL ONE (17:50)
[2023-07-21] MEDS ORDERED: BUPIVACAINE 0.25% PF 30 ML VIAL ONE (17:50)
[2023-07-21] MEDS ORDERED: LIDOCAINE 2%/EPINEPHRINE 1:200,000 20 ML PF ONE (17:50)
--- NOTE | 2023-07-21 18:00 | History & Physical Report ---
Date of Service July 21, 2023 Assessment & Plan Admission and Anticipated Discharge Date Admission Date: July 21, 2023 History of Present Illness Chief Complaint: onset of labor Primary Care Provider: Benjamin Haro, 28 F P1001 at 38.5 weeks presents in labor. GBS is positive. Allergies Allergy/AdvReac Type Severity Reaction Status Date / Time No Known Allergies Allergy Verified 07/12/20 14:59 Home Medications Medication Instructions Recorded Confirmed Type levothyroxine 125 mcg tablet 125 mcg PO DAILY 05/13/20 07/21/23 History metoprolol succinate 50 mg 50 mg PO DAILY 05/13/20 07/21/23 History tablet,extended release 24 hr calcitriol 0.25 mcg capsule 0.25 mcg PO BID 07/12/20 07/21/23 History prenat.vits,marlene,[id number] 1 tab PO DAILY 07/12/20 07/21/23 History Patient History Medical History Syncope Vasovagal near syncope Surgical History History of thyroidectomy Family History Father Hypertension Mother Ovarian cyst Social History Smoking Status: Never smoker Second Hand Exposure: No; Do You Dip or Chew Tobacco: No; Hx Alcohol Use: No Hx Substance Use: No Preferred Language: Turkish Communication Ability: Effective Gas Usage Meter Clerk Required: No Beliefs That Will Affect Care: None marital status: Current Living Situation: Spouse Other Information That Helps Us Care for You: No Feels Safe at Home: Yes Safety Concerns: Feels Safe At This Time Assistive Devices: None 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 Review of Systems All systems reviewed & are unremarkable except as noted in HPI & below Physical Exam Constitutional: WD/WN, vitals as above Eyes: PERRL, conjunctivae normal, anicteric sclerae Gastrointestinal (Abdomen): Inspection/Auscultation: abdomen normal to inspection Musculoskeletal: Extremities: extremities normal to inspection Skin: no rashes, warm and dry Neurologic: patellar DTR's 2+ bilat, sensation intact Psychiatric: A+Ox3, euthymic affect Genitourinary: OB Exam Abdomen: + fundal height and + vertex Manual OB Exam: + cervical dilation 4 cm and 5 cm, + cervical effacement 70% and + station -1 OB Exam Monitor Tracing: + external FHT monitor used, + external uterine monitor used, + category I and + normal FHT variability Results & Data Vital Signs (Past 12 Hours) Vital Signs Temp Pulse Resp BP 07/21/23 17:22 100 H 132/74 07/21/23 17:16 37.2 C 100 H 18 132/74 Code Status & VTE Plan VTE Prophylaxis Plan VTE Prophylaxis will be ordered: No Monitoring External Monitor Cat 1
[2023-07-21] MEDS ORDERED: PENICILLIN G POTASSIUM 6 MU in DEXTROSE 5% 250 ML IV STA (18:01)
[2023-07-21 18:14] LABS: Hematocrit (blood only) 32.1 % (37.0-47.0); Mean Corpuscular Hemoglobin 29.6 pg (25.0-34.0); Mean Corpuscular Hgb Conc 34.3 g/dL (32.0-36.0); Mean Corpuscular Volume 86.5 fL (80.0-100.0); Mean Platelet Volume 10.7 fL (9.4-12.4); Platelet Count 219 K/uL (130-400); RDW Coefficient of Variation 15.8 % (11.5-14.5); RDW Standard Deviation 49.6 fL (36.4-46.3); Red Blood Count 3.71 M/uL (4.20-5.40); White Blood Count 12.09 K/ul (4.8-10.8)
[2023-07-21] MEDS ORDERED: NALOXONE HCL 1 MG in SODIUM CHLORIDE 0.9% 1,000 ML IV PRN (19:29)
[2023-07-21] MEDS ORDERED: fentaNYL 2MCG/ML ROPIVACAINE 1.25MG/ML 100 ML BAG EPI PRN (19:29)
[2023-07-21] MEDS ORDERED: ROPIVACAINE 0.5% PF 5 MG/ML 20 ML VIAL EPI PRN (19:29)
[2023-07-21] MEDS ORDERED: LIDOCAINE 2%/EPINEPHRINE 1:200,000 20 ML PF EPI STA (19:29)
[2023-07-21] MEDS ORDERED: SODIUM CHLORIDE 0.9% PF INJ 10 ML VIAL EPI STA (19:29)
[2023-07-21] MEDS ORDERED: BUPIVACAINE 0.25% PF 30 ML VIAL EPI STA (19:29)
[2023-07-21] MEDS ORDERED: fentaNYL citrate PF 100 MCG/2 ML VIAL EPI STA (19:29)
[2023-07-21] MEDS ORDERED: LIDOCAINE 2% MPF LOCAL 5 ML VIAL EPI PRN (19:29)
[2023-07-21] MEDS ORDERED: ONDANSETRON INJ 2 MG/ML 2 ML VIAL IV PRN (19:29)
[2023-07-21] MEDS ORDERED: fentaNYL citrate PF 100 MCG/2 ML VIAL EPI PRN (19:29)
[2023-07-21] MEDS ORDERED: NALBUPHINE HCL INJ 10 MG/ML AMP IV PRN (19:29)
[2023-07-21] MEDS ORDERED: SODIUM CHLORIDE 0.9% PF INJ 10 ML VIAL EPI PRN (19:29)
[2023-07-21] MEDS ORDERED: NALOXONE HCL 0.4 MG/1 ML VIAL/CARP IV PRN (19:29)
[2023-07-21] MEDS ORDERED: BUPIVACAINE 0.25% PF 30 ML VIAL EPI PRN (19:29)
[2023-07-21] MEDS ORDERED: ePHEDrine sulfate 50 MG/ML AMP IV PRN (19:29)
[2023-07-21] MEDS ORDERED: diphenhydrAMINE 50 MG/ML VIAL IV PRN (19:29)
--- NOTE | 2023-07-21 19:29 | Anesthesiology Consultation ---
Date of Service July 21, 2023 Assessment & Plan Chart Review Chart Review: Acceptable Risk for Surgery and Patient NOT seen in Pre Admission Testing Consults Requested none ASA ASA2 Proposed Anesthesia Anesthesia Type: Labor Epidural Risk / Benefits Reviewed With: PT / POA / Parent / Guardian, Accepts Plan and Informed Consent Obtained History Height/Weight Height: 5 ft 1 in Weight: 82.1 kg Allergies Allergy/AdvReac Type Severity Reaction Status Date / Time No Known Allergies Allergy Verified 07/12/20 14:59 Medications Home Medications Medication Instructions Recorded Confirmed Last Taken levothyroxine 125 mcg tablet 125 mcg PO DAILY 05/13/20 07/21/23 07/21/23 metoprolol succinate 50 mg 50 mg PO DAILY 05/13/20 07/21/23 07/21/23 tablet,extended release 24 hr calcitriol 0.25 mcg capsule 0.25 mcg PO BID 07/12/20 07/21/23 07/21/23 prenat.vits,marlene,[id number] 1 tab PO DAILY 07/12/20 07/21/23 07/21/23 Active Medications Generic Name Dose Route Start Last Admin Trade Name Freq PRN Reason Stop Dose Admin Lactated Ringer's 1,000 mls @ 125 mls/hr 07/21/23 17:38 07/21/23 18:47 Lr IV 07/23/23 17:37 125 mls/hr .Q8H PRN Administration L&D Protocol Protocol Past Medical History Medical History Syncope Vasovagal near syncope Exercise / Class Metabolic Activity II 4-5 Yardwork/Stairs/Walk up hill Past Family History Family History Father Hypertension Mother Ovarian cyst Past Surgical History Surgical History History of thyroidectomy Past Anesthesia History No Hx of Anesthesia Complications and No Family Hx of Anesthesia Complications History of PONV No Hx of PONV and No Hx of Motion Sickness Social History Smoking Status: Never smoker Do You Dip or Chew Tobacco: No Hx Alcohol Use: No Hx Substance Use: No substance use type: does not use Physical Exam Vital Signs Last Vital Signs Temp 37.2 C 07/21/23 17:16 Pulse 99 H 07/21/23 19:24 Resp 18 07/21/23 19:00 BP 116/73 07/21/23 19:24 Pulse Ox 100 07/21/23 19:23 ENMT Mouth: no dentition abnormality Thyromental Distance: > or= 3.5 Finger Breadths Mallampati Class: II Neck normal visual inspection Respiratory normal respiratory effort Auscultation: lungs clear to auscultation bilaterally Cardiovascular Rate/Rhythm: regular rate and regular rhythm Psychiatric Orientation: alert Testing Laboratory Results 07/21/23 17:48
--- NOTE | 2023-07-21 19:46 | Labor Progress Brief Note ---
Date of Service July 21, 2023 Assessment & Plan Admission and Anticipated Discharge Date Admission Date: July 21, 2023 Physical Exam Genitourinary: Manual OB Exam: + cervical dilation 5 cm, + cervical effacement 70%, + station -2 and + amniotic fluid clear OB Exam Monitor Tracing: + external FHT monitor used, + external uterine monitor used, + category I and + normal FHT variability AROM with amni-hook clear fluid Results & Data Vital Signs (Past 12 Hours) Vital Signs Temp Pulse Resp BP Pulse Ox 07/21/23 19:43 81 100 07/21/23 19:38 99 H 100 07/21/23 19:00 37.1 C 07/21/23 19:30 18 07/21/23 19:30 18 07/21/23 19:33 76 100 07/21/23 19:28 95 H 100 07/21/23 19:23 94 H 100 07/21/23 19:24 99 H 116/73 07/21/23 19:18 75 99 07/21/23 19:19 76 116/68 07/21/23 19:13 91 H 100 07/21/23 19:14 104 H 127/71 07/21/23 19:08 91 H 123/72 100 07/21/23 19:03 98 07/21/23 19:03 80 07/21/23 19:03 80 126/67 07/21/23 19:00 81 18 124/72 07/21/23 18:58 95 H 99 07/21/23 18:53 81 97 07/21/23 18:54 78 119/63 07/21/23 18:51 78 136/81 07/21/23 18:48 99 07/21/23 18:48 80 07/21/23 18:48 85 138/74 07/21/23 18:43 83 100 07/21/23 18:38 89 100 07/21/23 17:22 100 H 132/74 07/21/23 17:16 37.2 C 100 H 18 132/74
[2023-07-21] MEDS ORDERED: PENICILLIN G POTASSIUM 3 MU in DEXTROSE 5% 100 ML IV PRN (22:00)
[2023-07-21] MEDS ORDERED: BENZOCAINE 20% SPRY 85 APPLN/85 GM CAN EXT PRN (22:13)
[2023-07-21] MEDS ORDERED: ACETAMINOPHEN 325 MG TAB PO PRN (22:13)
[2023-07-21] MEDS ORDERED: HYDROCORTISONE ACETATE 25 MG SUPP PR PRN (22:13)
[2023-07-21] MEDS ORDERED: DIPHTHERIA/TETANUS/PERTUSSIS Vaccine (Tdap, Age 7+yrs) 0.5mL SYR/VL IM ONE (22:13)
[2023-07-21] MEDS ORDERED: bisacodyL 10 MG SUPP PR PRN (22:13)
--- NOTE | 2023-07-21 22:13 | Delivery Summary ---
Vaginal Delivery Summary Date of Service July 21, 2023 Vaginal Delivery Summary live female ANA over intact perineum with delayed cord clamping and Apgars 8/9 weight pending. Cord blood obtained followed by spontaneous delivery of intact placenta. No tears. EBL 150 ml. Final sponge and instrument count are correct. Mom and baby stable.
[2023-07-22] MEDS: IBUPROFEN 600 MG TAB PO PRN ×5 (00:11→19:59)
[2023-07-22] MEDS ORDERED: LEVOTHYROXINE SODIUM 125 MCG TABLET PO SCH (06:30)
[2023-07-22 06:50] LABS: Hematocrit (blood only) 31.3 % (37.0-47.0); Hemoglobin 10.6 g/dl (12.0-16.0); Mean Corpuscular Hemoglobin 29.8 pg (25.0-34.0); Mean Corpuscular Hgb Conc 33.9 g/dL (32.0-36.0); Mean Corpuscular Volume 87.9 fL (80.0-100.0); Mean Platelet Volume 10.9 fL (9.4-12.4); Platelet Count 192 K/uL (130-400); RDW Coefficient of Variation 15.9 % (11.5-14.5); RDW Standard Deviation 50.6 fL (36.4-46.3); Red Blood Count 3.56 M/uL (4.20-5.40); White Blood Count 12.34 K/ul (4.8-10.8)
[2023-07-22] MEDS ORDERED: BUTORPHANOL TARTRATE 1 MG/ML VIAL IV STA (07:06)
--- NOTE | 2023-07-22 07:53 | Anesthesia Procedure Note ---
Date of Service July 22, 2023 Anesthesia Post Epidural Note Vital Signs Vital Signs: Temp Pulse Resp BP Pulse Ox O2 Del Method 36.4 C L 69 18 119/84 97 Room Air 07/22/23 07:24 07/22/23 07:24 07/22/23 07:24 07/22/23 07:24 07/22/23 03:55 07/22/23 03:55 Pain Intensity Bilateral Abdomen: Pain Intensity: 2 Notes Mental Status: alert / awake / arousable and participated in evaluation Nausea / Vomiting: adequately controlled Pain: adequately controlled Airway Patency, RR, SpO2: stable & adequate BP & HR: stable & adequate Hydration State: stable & adequate Neuraxial Anesthesia: was administered and sensory block is resolving Anesthetic Complications: no major complications apparent Epidural: Removed without complications and With tip intact
[2023-07-22] MEDS ORDERED: FERROUS SULFATE 325 MG TAB PO SCH (08:00)
[2023-07-22] MEDS ORDERED: PRENATAL VITAMIN 1 TAB PO SCH (08:00)
[2023-07-22] MEDS ORDERED: METOPROLOL SUCC 50MG EXT REL TAB PO SCH (09:00)
[2023-07-22] MEDS ORDERED: NON-FORMULARY MEDICATION (Prenat.Vits,Cal,Min-Iron-Folic Tablet) PO SCH (09:00)
[2023-07-22] MEDS: CALCITRIOL 0.25 MCG CAPSULE PO SCH ×2 (09:35→19:59)
[2023-07-22] MEDS: DOCUSATE SODIUM 100 MG CAP PO SCH ×2 (09:36→19:59)
[2023-07-22] MEDS ORDERED: METOPROLOL SUCC 25MG EXT REL TAB PO SCH (09:45)
--- NOTE | 2023-07-22 09:51 | Obstetrical Progress Note ---
Date of Service July 22, 2023 Assessment & Plan (1) Normal course: PPD #1 pt doing well wishes to be discharged home today Subjective Ambulation: ambulating normally Voiding: no voiding problems Passing Gas:: Yes Diet Tolerance:: regular diet Lochia:: Small Feeding Type:: breast feeding Review of Systems All systems reviewed & are unremarkable except as noted in HPI & below Physical Exam Constitutional WD/WN, vitals as above well developed and well nourished Eyes PERRL, conjunctivae normal, anicteric sclerae Neck trachea midline, no thyromegaly Respiratory normal respiratory effort, lungs clear to auscultation Auscultation: no crackles, no rales and no wheezes Cardiovascular RRR, no murmur, no edema Gastrointestinal (Abdomen) normal bowel sounds, soft, nontender, no hepatosplenomegaly Uterus is below umbilicus Musculoskeletal no cyanosis or clubbing, extremities motor strength 5/5 Skin no rashes, warm and dry Neurologic patellar DTR's 2+ bilat, sensation intact Psychiatric A+Ox3, euthymic affect Genitourinary normal external appearance Results & Data Vital Signs (Past 12 Hours) Vital Signs Temp Pulse Pulse Pulse Resp BP BP 07/22/23 07:25 36.5 C 72 18 118/79 07/22/23 07:24 36.4 C L 69 18 07/22/23 03:55 36.6 C 72 18 07/22/23 00:10 36.8 C 18 07/22/23 00:28 36.3 C L 69 18 07/21/23 23:05 18 07/21/23 23:35 18 07/21/23 22:50 18 07/21/23 22:35 18 07/21/23 22:20 18 07/21/23 22:05 36.9 C 18 07/22/23 00:02 74 109/56 L 07/21/23 23:46 83 120/55 L 07/21/23 23:32 83 118/58 L 07/21/23 23:17 77 134/95 07/21/23 23:02 85 130/70 07/21/23 22:46 75 117/58 L 07/21/23 22:32 76 117/56 L 07/21/23 22:17 85 134/62 07/21/23 22:02 94 H 129/60 BP Pulse Ox O2 Del Method 07/22/23 07:25 97 Room Air 07/22/23 07:24 119/84 07/22/23 03:55 119/70 97 Room Air 07/22/23 00:10 07/22/23 00:28 137/78 97 Room Air 07/21/23 23:05 07/21/23 23:35 07/21/23 22:50 07/21/23 22:35 07/21/23 22:20 07/21/23 22:05 07/22/23 00:02 07/21/23 23:46 07/21/23 23:32 07/21/23 23:17 07/21/23 23:02 07/21/23 22:46 07/21/23 22:32 07/21/23 22:17 07/21/23 22:02
[2023-07-22] MEDS ORDERED: bisacodyL 5 MG TABEC PO SCH (20:00)
== END 2023-07-22 22:42 | disposition home or self-care (01) | DRG 807 ==
LOC: OPB 17:00 → 4S1 17:07 → 4E2 07-22 00:36